=== PATIENT | male | born 1955 | race African-American/Black ===

== ENCOUNTER 2016-03-01 08:22 | Outpatient (CLI) | payer OTHER ==
[2016-02-03 09:39] VITALS: BP 125/83
[2016-03-01 09:08] LABS: eGFR (African) > 60; eGFR (Non-African) 51
== END 2016-03-01 08:23 ==
LOC: LAB 08:22
PROVIDERS: ATTEND Internal Medicine Cardiovascular Disease
DX: I50.9 Heart failure, unspecified (principal)
CPT/HCPCS: 36415; 80048

== ENCOUNTER 2016-03-06 14:55 | Outpatient (CLI) | payer OTHER ==
[2016-02-03 09:39] VITALS: BP 125/83
== END 2016-03-06 14:56 ==
LOC: CARD 14:55
PROVIDERS: ATTEND Internal Medicine Cardiovascular Disease
DX: I50.9 Heart failure, unspecified (principal)
CPT/HCPCS: 99213

== ENCOUNTER 2016-08-13 06:56 | Inpatient (IN) | payer OTHER ==
[2016-08-13] MEDS ORDERED: IPRATROPIUM/ALBUTEROL SULFATE 3 ML AMPUL.NEB NEB ONE ×2 (06:57→07:17)
--- NOTE | 2016-08-13 07:12 | ED Physician Documentation ---
Dyspnea - HISTORIAN Historian: patient (60 year old male walks into to ER with complaints of SOB, on arrival RA Sat 72% with HR 123. Patient denies CP, c/o cough. Reports cough for 1 week, was seen by Dr Willson this week and given "antibiotic" and cough medication. States his SOB was much worse when he got up this morning. ) - HPI Chief Complaint: Wheezing Onset: days ago Duration: continues in ED Associated Symptoms: denies: chills, fever, chest pain, chest discomfort Further Comments: yes (60) - ROS CONST: recent illness EYES/ENT: none GI/: none NEURO/PSYCH: denies: headache MS/SKIN/LYMPH: none - PAST HX Cardiac Disease: CHF PE Risk Factors: hypertension - VITAL SIGNS Vital Signs: Vital Signs Temp Pulse Resp BP Pulse Ox 125/83 02/03/16 08:03 <CORIE RUGGIERO - Last Filed: 08/13/16 07:10> - PAST HX Lung Disease: none Other History: other (CAD (Cath 2015 40% LAD), CHF, HTN, HLD, Sleep apnea, pineal gland cyst, Gout, Diabetes (orals)) - SOCIAL HX Smoking History: non-smoker - FAMILY HX Family History: none - VITAL SIGNS Vital Signs: Vital Signs Temp Pulse Resp BP Pulse Ox 117 H 125/83 93 08/13/16 07:01 02/03/16 08:03 08/13/16 07:01 - REVIEWED ASSESSMENTS Nursing Assessment Reviewed: Yes Vitals Reviewed: Yes <Francisco Javier Mansfield - Last Filed: 08/13/16 08:54> - PAST HX Allergies/Adverse Reactions: Allergies Allergy/AdvReac Type Severity Reaction Status Date / Time PORFIRIO Inhibitors AdvReac Cough Verified 08/13/16 07:12 Progress - Progress Progress: Duoneb HFN Pulmicort NEB Lasix 20 mg IV (PT took his own Lasix 40mg po shortly after arrival) Rocephin 1 gm IV Admit to Dr. Willson. - EKG/XRAY/CT EKG: rhythm (sinus tachycardia; AZ=926; occasional PVC's; LAD.) XRAY: chest (bibasilar hazy infiltrates) <Francisco Javier Mansfield - Last Filed: 08/13/16 08:54> ED Results Lab/Radiology - Orders Orders: ED Orders Category Date Time Status Continuous EKG monitoring Q30M Care 08/13/16 07:01 Ordered Continuous Pulse Oximetry Q30M Care 08/13/16 07:[address] IV Lock 1T Care 08/13/16 07:01 Ordered CHEST 1 VIEW [RAD] Stat Exams 08/13/16 07:01 Ordered BNP [NT-proBNP] Stat Lab 08/13/16 Ordered CBC/PLATELET/DIFF Stat Lab 08/13/16 07:01 Ordered CMP Stat Lab 08/13/16 07:01 Ordered CREATINE KINASE Stat Lab 08/13/16 07:01 Ordered TROPONIN I (cTnI) Stat Lab 08/13/16 07:01 Ordered UA W/MICRO IF INDICATED Stat Lab 08/13/16 07:01 Ordered Ipratropium/Albuterol Sulfate [Duoneb] Med 08/13/16 06:57 Discontinued 3 ml NEB .STK-MED ONE Oxygen Daily Oxygen 08/13/16 07:15 Ordered EKG WITH COMPARISON Stat Ther 08/13/16 07:01 Ordered <CORIE RUGGIERO - Last Filed: 08/13/16 07:10> - Orders Orders: ED Orders Category Date Time Status Continuous EKG monitoring Q30M Care 08/13/16 07:01 Active Continuous Pulse Oximetry Q30M Care 08/13/16 07:[address] IV Lock 1T Care 08/13/16 07:01 Active CHEST 1 VIEW [RAD] Stat Exams 08/13/16 07:01 Taken BNP [NT-proBNP] Stat Lab 08/13/16 07:15 Received CBC/PLATELET/DIFF Stat Lab 08/13/16 07:15 Received CMP Stat Lab 08/13/16 07:15 Received CREATINE KINASE Stat Lab 08/13/16 07:15 Received TROPONIN I (cTnI) Stat Lab 08/13/16 07:15 Received UA W/MICRO IF INDICATED Stat Lab 08/13/16 07:01 Ordered Ipratropium/Albuterol Sulfate [Duoneb] Med 08/13/16 06:57 Discontinued 3 ml NEB .STK-MED ONE Ipratropium/Albuterol Sulfate [Duoneb] Med 08/13/16 07:17 Discontinued 3 ml NEB NOW ONE Oxygen Daily Oxygen 08/13/16 07:15 Ordered EKG WITH COMPARISON Stat Ther 08/13/16 07:01 Ordered <Francisco Javier Mansfield - Last Filed: 08/13/16 08:54> Dyspnea Physical Exam - EXAM General Appearance: moderate distress EENT: pharynx normal Neck: nml inspection Respiratory: wheezes (b/l) CVS: tachycardia Abdomen: non-tender, no organomegaly, no distention Skin: color nml, no rash Extremities: non-tender, normal range of motion, no evidence of injury Neuro/Psych: oriented x3, motor nml, sensation nml <Francisco Javier Mansfield - Last Filed: 08/13/16 08:54> Discharge <CORIE RUGGIERO - Last Filed: 08/13/16 07:10> Decision to Admit: [id number] Decision Time: 08:34 <Francisco Javier Mansfield - Last Filed: 08/13/16 08:54> Clincal Impression: hazy bibasilar infiltrates CHF (congestive heart failure) Qualifiers: Congestive heart failure type: unspecified congestive heart failure type Congestive heart failure chronicity: acute on chronic Qualified Code(s): I50.9 - Heart failure, unspecified Diabetes mellitus Qualifiers: Diabetes mellitus type: type 2 Diabetes mellitus complication status: without complication Diabetes mellitus residential insulin use: without residential use Qualified Code(s): E11.9 - Type 2 diabetes mellitus without complications Condition: Stable Disposition: 09 ADMITTED INPATIENT
[2016-08-13 07:24] LABS: BASOPHILS % 0.8 (0.0-1.5); EOSINOPHILS % 2.6 % (0.0-6.8); MEAN CORPUSCULAR HEMOGLOBIN 29.1 pg (28.0-34.0); MEAN CORPUSCULAR VOLUME 93.3 fl (80.0-100.0); MONOCYTES % 6.4 % (0.0-11.0); NEUTROPHILS # 3.8 # k/uL (1.4-7.7)
[2016-08-13] MEDS ORDERED: BUDESONIDE 0.5MG/2ML AMPUL.NEB NEB ONE (07:34)
[2016-08-13] MEDS ORDERED: CARVEDILOL 12.5 MG TABLET PO ONE ×2 (07:47→15:52)
[2016-08-13] MEDS ORDERED: SPIRONOLACTONE 25 MG TABLET PO ONE (07:47)
[2016-08-13] MEDS ORDERED: CARVEDILOL 25 MG TABLET PO SCH (08:00)
[2016-08-13 08:04] LABS: APPEARANCE,URINE Clear (CLEAR); COLOR,URINE Yellow (YELLOW); OCCULT BLOOD,URINE Negative (NEGATIVE); PH URINE 5.5 (5.0 - 8.0); UROBILINOGEN URINE 0.2 Eu (0.2-1.0)
[2016-08-13] MEDS ORDERED: FUROSEMIDE 40 MG/4 ML VIAL IVP ONE (08:20)
[2016-08-13] MEDS ORDERED: FUROSEMIDE 20 MG/2 ML VIAL IVP ONE (08:31)
[2016-08-13] MEDS ORDERED: cefTRIAXone SODIUM 1 GM VIAL ONE (08:50)
[2016-08-13] MEDS ORDERED: 0.9 % SODIUM CHLORIDE 100 ML IV ONE (08:50)
[2016-08-13] MEDS ORDERED: IPRATROPIUM/ALBUTEROL SULFATE 3 ML AMPUL.NEB NEB PRN (08:51)
[2016-08-13] MEDS: cefTRIAXone SODIUM 1 GM in 0.9 % SODIUM CHLORIDE 50 ML IV SCH (09:00)
[2016-08-13] MEDS ORDERED: cefTRIAXone SODIUM 1 GM in 0.9 % SODIUM CHLORIDE 50 ML IV SCH (09:00)
[2016-08-13] MEDS: CARVEDILOL 25 MG TABLET PO SCH ×2 (09:00→20:42)
[2016-08-13] MEDS ORDERED: SPIRONOLACTONE 25 MG TABLET PO SCH (09:00)
[2016-08-13] MEDS ORDERED: BUDESONIDE 0.5MG/2ML AMPUL.NEB NEB SCH (09:00)
[2016-08-13] MEDS: SPIRONOLACTONE 25 MG TABLET PO SCH (09:01)
[2016-08-13] MEDS: AZITHROMYCIN 500 MG in 0.9 % SODIUM CHLORIDE 250 ML IV SCH (10:29)
[2016-08-13] MEDS: FLUTICASONE PROPIONATE 120 SPRAY/16 GR BOTTLE NS SCH (10:33)
[2016-08-13] MEDS: SALINE FLUSH 10 ML DISP.SYRIN IV SCH ×2 (10:38→21:02)
--- NOTE | 2016-08-13 13:02 | Diagnostic Imaging Report ---
CORIE RUGGIERO (WRAPPING MACHINE OPERATOR) - ER [facility] [address] [facility].[address] [address] Report Submission Date: Aug 13, 2016 7:20:38 AM CDT Patient Study Name: RAYNA TAMEZ Date: Aug 13, 2016 7:06:44 AM CDT Modality Type: CR Gender: M Description: CHEST : 53 Institution: [facility] Physician: CORIE RUGGIERO (WRAPPING MACHINE OPERATOR) - ER Examination: Portable chest History: Dyspnea Comparison exam: 01 February 2016 Findings: Single view of the chest demonstrates bilateral hazy infiltrates involving the lower lung nieves bilaterally. No blunting of the costophrenic margins. Cardiac silhouette not enlarged. Osseous structures appropriate for age. Impression: Bibasilar hazy infiltrates. No effusion. Electronically signed on Aug 13, 2016 7:20:38 AM CDT by: Boo HALLMAN
[2016-08-13] MEDS: ENOXAPARIN SODIUM 40 MG/0.4 ML DISP.SYRIN SQ SCH (13:45)
[2016-08-13 13:55] VITALS: BMI 35.0
--- NOTE | 2016-08-13 16:42 | History and Physical Report ---
History of Present Illnes - History of Present Illness Reason for Visit: Short of breath. History of Present Illness: Patient presented to the ER with SOB - found to have RA SAT of 72% and HR 123. Responded well to duoneb, O2, and IV lasix. Reports once he urinated he began to breathe better. Has had a cough for several months - I saw him in clinic and treated him with a Zpack and flonase. has been ill also. Cough has continued but didn't feel so SOB until this morning. Has a h/o CHF but has been doing very well and decreased admissions since being on Entresto. In the ER he was found to have bilateral patchy infiltrates and an elevated BNP with normal Ddimer. 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: Other (pineal gland cyst) Rheumatologic: Gout Endocrine: Diabetes - Past Surgical History Past Surgical History: None - Past Family History Mother Family History: CAD (cardiomyopathy), , Other (CRI) Father Family History: CAD, Sister 1 Family History: DM, Hypertension - Past Social History Smoke: Quit Occupation: works for [employer] Alcohol: None Drugs: None Lives: With Family - Health Maintenance Health Maintenance: Colonoscopy Influenza Vaccine: Current for this Influenza Season Pneumonia Vaccine: Yes Resuscitation Status: Resusciation Status Resuscitation Status Full Code Review of Systems - Review of Systems Constitutional: negative: Fever, Weakness Eyes: negative: pain ENT: negative: Ear Pain Respiratory: Cough, Shortness of Breath Cardiovascular: negative: Chest Pain Gastrointestinal: Vomiting (x1 yesterday). negative: Nausea, Abdominal Pain Genitourinary: negative: Dysuria Musculoskeletal: negative: Neck Pain Skin: negative: Rash Neurological: Weakness - Medications/Allergies Allergies/Adverse Reactions: Allergies Allergy/AdvReac Type Severity Reaction Status Date / Time PORFIRIO Inhibitors AdvReac Cough Verified 08/13/16 07:12 Current Inpatient Medications: Current Inpatient Medications Albuterol/Ipratropium (Duoneb) 3 ml NEB Q4 PRN PRN Reason: Wheezing Carvedilol (Coreg) 25 mg PO BID BRENNAN Last Admin: 08/13/16 09:00 Dose: Not Given Fluticasone Propionate (Flonase Nasal [place]) 2 spray NS D BRENNAN Last Admin: 08/13/16 10:33 Dose: 2 spr Furosemide (Lasix) 40 mg IVP BID [facility] Stop: 08/17/16 23:59 Glipizide (Glucotrol) 10 mg PO BID [facility] Last Admin: 08/13/16 10:37 Dose: 10 mg Azithromycin 500 mg/ Sodium (Chloride) 250 mls @ 125 mls/hr IV Q24H [facility] Stop: 08/16/16 08:59 Last Admin: 08/13/16 10:29 Dose: 125 mls/hr Ceftriaxone Sodium 1 gm/ (Sodium Chloride) 50 mls @ 100 mls/hr IV QD [facility] Last Admin: 08/13/16 09:00 Dose: 100 mls/hr Metformin HCl (Glucophage) 1,000 mg PO BID [facility] Last Admin: 08/13/16 10:36 Dose: 1,000 mg Sodium Chloride (Normal Saline Flush) 3 ml IV BID [facility] Last Admin: 08/13/16 10:38 Dose: 3 ml Spironolactone (Aldactone) 25 mg PO DAILY [facility] Last Admin: 08/13/16 09:01 Dose: Not Given Exam - Exam Vital Signs: Vital Signs (72 hours) 08/13/16 08/13/16 09:15 09:39 Temperature 98.7 F 97.5 F L Pulse Rate [ 83 72 Pulse ox] Respiratory 29 H 18 Rate Blood Pressure 119/89 128/69 [Right Arm] O2 Sat by Pulse 97 97 Oximetry General: Alert, Oriented to Person, Oriented to Place, Oriented to Time, Cooperative, Mild distress HEENT: Atraumatic, PERRLA, EOMI, Mouth Mucous membr. moist/[place], Nose Mucous membr. moist/[place] Neck: Normal Range of Motion Lungs: Rhonchi Cardiovascular: Regular rate Abdomen: Normal bowel sounds, Soft, No tenderness Integumentary: Normal Extremities: No edema Neurological: Normal gait, Normal speech, Strength Equal Bilat, Normal tone Psych/Mental Status: Mental status NL, Mood NL, Appropriate Affect, Intact Judgment Assessment/Plan - Assessment/Plan (1) Bilateral pneumonia Status: Acute Current Visit: Yes Qualifiers: Pneumonia type: due to unspecified organism Lung location: lower lobe of lung Qualified Code(s): J18.9 - Pneumonia, unspecified organism Plan: Blood cultures Pending. Start duonebs, zithromax and rocephin. O2 to keep sats > 90%. (2) Congestive heart failure Status: Acute Current Visit: Yes Qualifiers: Congestive heart failure type: unspecified congestive heart failure type Congestive heart failure chronicity: acute on chronic Qualified Code(s): I50.9 - Heart failure, unspecified Plan: Start IV lasix diuresis. Watch labs closely. I&O. Daily weight. Consult Dr. Caldwell tomorrow. On Bblocker. Intolerant of ACEI. Unsure why not on ARB. Echo showed EF 20%. (3) Diabetes mellitus Status: Chronic Current Visit: No Qualifiers: Diabetes mellitus type: type 2 Diabetes mellitus complication status: without complication Diabetes mellitus fdc insulin use: without termite exterminator use Qualified Code(s): E11.9 - Type 2 diabetes mellitus without complications (4) Cardiomyopathy Status: Acute Current Visit: No VTE Assessment - RISK FACTOR SCORE VTE RISK FACTOR SCORES: AGE OVER 60 YEARS, ACUTE INFECTION OTHER THEN SEPSIS - RISK VTE MODERATE RISK: SCORE OF 2 (RISK PROXIMAL DVT 2-4%) PROPHYAXIS NEEDED
[2016-08-13] MEDS: FUROSEMIDE 20 MG/2 ML VIAL IVP SCH (21:00)
[2016-08-14] MEDS ORDERED: CARVEDILOL 12.5 MG TABLET PO ONE ×2 (04:57→13:00)
[2016-08-14 06:57] LABS: BASOPHILS % 1.3 (0.0-1.5); EOSINOPHILS % 3.6 % (0.0-6.8); MEAN CORPUSCULAR VOLUME 92.2 fl (80.0-100.0); MONOCYTES % 7.1 % (0.0-11.0)
[2016-08-14 07:18] LABS: eGFR (African) > 60; eGFR (Non-African) 51
--- NOTE | 2016-08-14 09:08 | Inpatient Progress Note ---
Subjective - Required Recertification Statement I anticipate X number of days because-include discharge plan: 1 - Review of Systems Subjective: Patient feeling better. Able to wean off O2. Objective - Exam Vitals and I&O: Vital Signs Temp 98 F 08/14/16 06:00 Pulse 68 08/14/16 06:00 Resp 16 08/14/16 06:00 BP 122/76 08/14/16 06:00 Pulse Ox 99 08/14/16 06:00 Intake & Output 08/13/16 08/13/16 08/14/16 11:59 23:59 11:59 Intake Total 840 840 Output Total 4750 Balance 840 -3910 Weight 98.43 kg 98.883 kg 96.162 kg Intake: Oral 840 840 Output: Urine 4750 Other: Voiding Method Urinal Urinal General: Alert, Oriented to Person, Oriented to Place, Oriented to Time, Cooperative, No acute distress Lungs: Rhonchi (Improved) Cardiovascular: Regular rate Extremities: No edema - Results Results: Laboratory Results WBC 4.60 K/ul (4.00-12.00) 08/14/16 06:45 RBC 4.97 M/ul (3.90-5.20) 08/14/16 06:45 Hgb 14.9 g/dL (12.0-18.0) 08/14/16 06:45 Hct 45.8 % (37.0-53.0) 08/14/16 06:45 MCV 92.2 fl (80.0-100.0) 08/14/16 06:45 MCH 30.0 pg (28.0-34.0) 08/14/16 06:45 MCHC 32.6 g/dL (30.0-36.0) 08/14/16 06:45 RDW 13.4 % (11.3-14.3) 08/14/16 06:45 Plt Count 224 K/mm3 (130-400) 08/14/16 06:45 Neut % (Auto) 64.4 % (39.0-79.0) 08/14/16 06:45 Lymph % (Auto) 22.0 % (16.0-50.0) 08/14/16 06:45 Price % (Auto) 7.1 % (0.0-11.0) 08/14/16 06:45 Eos % (Auto) 3.6 % (0.0-6.8) 08/14/16 06:45 Baso % (Auto) 1.3 (0.0-1.5) 08/14/16 06:45 Neut # (Auto) 3.0 # k/uL (1.4-7.7) 08/14/16 06:45 Lymph # (Auto) 1.0 # k/uL (0.6-4.0) 08/14/16 06:45 Price # (Auto) 0.3 # k/uL (0.0-0.9) 08/14/16 06:45 Eos # (Auto) 0.2 # k/uL (0.0-0.6) 08/14/16 06:45 Baso # (Auto) 0.1 # k/uL (0.0-0.5) 08/14/16 06:45 Reactive Lymphs % 1.6 % (0.0-5.0) 08/14/16 06:45 Reactive Lymphs # 0.1 # k/uL (0.0-0.8) 08/14/16 06:45 D-Dimer 392 ng/mL (6.0-682) 08/13/16 07:30 Sodium 138 mmol/L (136-145) 08/14/16 06:45 Potassium 4.0 mmol/L (3.5-5.0) 08/14/16 06:45 Chloride 99 mmol/L (98-110) 08/14/16 06:45 Carbon Dioxide 33 mmol/L (20-32) H 08/14/16 06:45 BUN 15 mg/dL (10-26) 08/14/16 06:45 Creatinine 1.5 mg/dL (0.4-1.5) 08/14/16 06:45 Estimated Creat Clear 72 08/14/16 06:45 Est GFR ( Amer) > 60 (60-) 08/14/16 06:45 Est GFR (Non-Af Amer) 51 (60-) L 08/14/16 06:45 Glucose 140 mg/dL (70-99) H 08/14/16 06:45 Calcium 9.3 mg/dL (8.5-10.5) 08/14/16 06:45 Total Bilirubin 0.9 mg/dL (0.2-1.2) 08/14/16 06:45 AST 18 U/L (0-41) 08/14/16 06:45 ALT 17 U/L (0-45) 08/14/16 06:45 Alkaline Phosphatase 73 U/L (46-116) 08/14/16 06:45 Creatine Kinase 192 U/L (0-225) 08/13/16 07:15 Troponin I 0.03 ng/mL (0.03-0.06) 08/13/16 07:15 NT-Pro-B Natriuret Pep 2227.9 pg/mL (15.0-125.0) H 08/13/16 07:15 Total Protein 6.4 g/dL (6.0-8.5) 08/14/16 06:45 Albumin 3.9 g/dL (3.0-5.5) 08/14/16 06:45 Urine Color Yellow (YELLOW) 08/13/16 08:00 Urine Appearance Clear (CLEAR) 08/13/16 08:00 Urine pH 5.5 (5.0 - 8.0) 08/13/16 08:00 Ur Specific [place] 1.010 (1.010-1.030) 08/13/16 08:00 Urine Protein Negative mg/dL (NEGATIVE) 08/13/16 08:00 Urine Ketones Negative mg/dL (NEGATIVE) 08/13/16 08:00 Urine Occult Blood Negative (NEGATIVE) 08/13/16 08:00 Urine Nitrite Negative (NEGATIVE) 08/13/16 08:00 Urine Bilirubin Negative (NEGATIVE) 08/13/16 08:00 Urine Urobilinogen 0.2 Eu (0.2-1.0) 08/13/16 08:00 Ur Leukocyte Esterase Negative (NEGATIVE) 08/13/16 08:00 Urine Glucose Negative mg/dL (NEGATIVE) 08/13/16 08:00 Assessment/Plan - Assessment/Plan (1) Bilateral pneumonia Status: Acute Current Visit: Yes Qualifiers: Pneumonia type: due to unspecified organism Lung location: lower lobe of lung Qualified Code(s): J18.9 - Pneumonia, unspecified organism Plan: 2 view CXR shows improvement today. Plan to continue IV antibiotics until blood cultures back tomorrow. Off O2. Not needed HFN. (2) Congestive heart failure Status: Acute Current Visit: Yes Qualifiers: Congestive heart failure type: unspecified congestive heart failure type Congestive heart failure chronicity: acute on chronic Qualified Code(s): I50.9 - Heart failure, unspecified Plan: Good diuresis on lasix IV. Continue another [address] Caldwell to see patient today. (3) Diabetes mellitus Status: Chronic Current Visit: No Qualifiers: Diabetes mellitus type: type 2 Diabetes mellitus complication status: without complication Diabetes mellitus medical terminologist insulin use: without mcc use Qualified Code(s): E11.9 - Type 2 diabetes mellitus without complications (4) Cardiomyopathy Status: Acute Current Visit: No
[2016-08-14] MEDS: CARVEDILOL 25 MG TABLET PO SCH ×2 (09:14→20:42)
[2016-08-14] MEDS: FLUTICASONE PROPIONATE 120 SPRAY/16 GR BOTTLE NS SCH (09:14)
[2016-08-14] MEDS: SPIRONOLACTONE 25 MG TABLET PO SCH (09:14)
[2016-08-14] MEDS: SALINE FLUSH 10 ML DISP.SYRIN IV SCH ×2 (09:14→20:39)
[2016-08-14] MEDS: cefTRIAXone SODIUM 1 GM in 0.9 % SODIUM CHLORIDE 50 ML IV SCH (09:17)
[2016-08-14] MEDS: FUROSEMIDE 20 MG/2 ML VIAL IVP SCH ×2 (10:11→20:24)
[2016-08-14] MEDS: AZITHROMYCIN 500 MG in 0.9 % SODIUM CHLORIDE 250 ML IV SCH (10:29)
[2016-08-14] MEDS: ENOXAPARIN SODIUM 40 MG/0.4 ML DISP.SYRIN SQ SCH (12:16)
--- NOTE | 2016-08-14 13:49 | Diagnostic Imaging Report ---
CHRIS MELGAR [facility] [address] [facility] [address] [address] Report Submission Date: Aug 14, 2016 6:50:02 AM CDT Patient Study Name: RAYNA TAMEZ Date: Aug 14, 2016 6:27:10 AM CDT Modality Type: CR Gender: M Description: CHEST : 53 Institution: [facility] Physician: CHRIS MELGAR HISTORY: 60-year-old male with shortness of breath. COMPARISON: Chest x-ray dated 08/13/2016 TECHNIQUE: 2 views of the chest were performed. FINDINGS: There has been interval improvement in the aeration of the bilateral lower lobes. No pneumothorax or new infiltrates. The heart is enlarged. There is thoracic degenerative disc disease. IMPRESSION: 1. Improvement in bilateral lower lobe infiltrate since the previous day. 2. Cardiomegaly. 3. Thoracic spondylosis. Electronically signed on Aug 14, 2016 6:50:02 AM CDT by: Jim HALLMAN
[2016-08-14] MEDS ORDERED: FUROSEMIDE 40 MG/4 ML VIAL ONE (20:14)
[2016-08-15] MEDS ORDERED: FUROSEMIDE 40 MG/4 ML VIAL ONE (04:02)
[2016-08-15 06:47] LABS: eGFR (African) > 60; eGFR (Non-African) 55
[2016-08-15] MEDS ORDERED: AZITHROMYCIN 250 MG TABLET PO ONE (08:03)
--- NOTE | 2016-08-15 08:08 | Discharge Summary ---
Discharge Summary - Discharge Sumary History of Present Illness: Patient presented to the ER with SOB - found to have RA SAT of 72% and HR 123. Responded well to duoneb, O2, and IV lasix. Reports once he urinated he began to breathe better. Has had a cough for several months - I saw him in clinic and treated him with a Zpack and flonase. has been ill also. Cough has continued but didn't feel so SOB until this morning. Has a h/o CHF but has been doing very well and decreased admissions since being on Entresto. In the ER he was found to have bilateral patchy infiltrates and an elevated BNP with normal Ddimer. Condition at Discharge: Stable Home Medications: Ambulatory Orders Medication Instructions Recorded Metolazone 2.5 mg PO DAILY PRN 08/14/16 Cefdinir [Omnicef] 300 mg PO BID #10 capsule 08/15/16 Empagliflozin [Jardiance] 10 mg PO DAILY #30 tablet 08/15/16 Sacubitril/Valsartan [Entresto 49 1 each PO BID #60 tablet 08/15/16 mg-51 mg Tablet] Consultations this Visit: Cardiology Procedures this Visit: None Allergies/Adverse Reactions: Allergies Allergy/AdvReac Type Severity Reaction Status Date / Time PORFIRIO Inhibitors AdvReac Cough Verified 08/13/16 07:12 Patient Problems: Current Active Problems Problem Status Onset Bilateral pneumonia Acute Congestive heart failure Acute Discharge Summary: Patient was admitted with dyspnea and hypoxia from pneumonia and CHF. Responded well to HFN, O2 and IV lasix in the ER. IV lasix diuresis continued while hospitalized. Dr. Caldwell consulted. Recommends to increase Entresto. A1C was 10.1. Will add Jardiance to his d/c home DM regimen. For his pneumonia - zithromax was given for 3 days. IV rocephin given for 3 days. D/C on 5 days of cefdinir. O2 weaned to RA. Discussed diet and medication compliance. Hospital Course: Discharge Dx: Pneumonia. CHF. DM. Cardiomyopathy. Disposition: HOme
[2016-08-15] MEDS: SPIRONOLACTONE 25 MG TABLET PO SCH (08:22)
[2016-08-15] MEDS: CARVEDILOL 25 MG TABLET PO SCH (08:22)
[2016-08-15] MEDS: FLUTICASONE PROPIONATE 120 SPRAY/16 GR BOTTLE NS SCH (08:55)
[2016-08-15] MEDS: FUROSEMIDE 20 MG/2 ML VIAL IVP SCH (08:58)
[2016-08-15] MEDS: cefTRIAXone SODIUM 1 GM in 0.9 % SODIUM CHLORIDE 50 ML IV SCH (09:20)
[2016-08-15] MEDS: SALINE FLUSH 10 ML DISP.SYRIN IV SCH (09:27)
[2016-08-15] MEDS: ENOXAPARIN SODIUM 40 MG/0.4 ML DISP.SYRIN SQ SCH (12:05)
[2016-08-15 13:32] VITALS: BP 117/75
== END 2016-08-15 12:00 | disposition home or self-care (01) | DRG 194 ==
LOC: ED 06:56 → SOUTH 08:51
PROVIDERS: ADMIT Family Medicine; ATTEND Family Medicine
DX: J18.9 Pneumonia, unspecified organism (principal); I42.9 Cardiomyopathy, unspecified; I50.9 Heart failure, unspecified; E11.9 Type 2 diabetes mellitus without complications
CPT/HCPCS: 36415; 71010; 71020; 80048; 80053; 81002; 82550; 83036; 83880; 84484; 85025; 85379; 87040; 93005; J0456; J0696; J1650; J1940; J7050; J7626; S1016

== ENCOUNTER 2016-11-21 07:29 | Emergency (ER) | payer OTHER ==
[2016-11-21 08:05] LABS: BASOPHILS % 1.3 (0.0-1.5); EOSINOPHILS % 1.6 % (0.0-6.8); MEAN CORPUSCULAR HEMOGLOBIN 29.5 pg (28.0-34.0); MEAN CORPUSCULAR VOLUME 89.3 fl (80.0-100.0); MONOCYTES % 8.2 % (0.0-11.0); NEUTROPHILS # 2.8 # k/uL (1.4-7.7)
[2016-11-21 08:08] LABS: eGFR (African) > 60; eGFR (Non-African) 50
[2016-11-21] MEDS: ASPIRIN 325 MG TABLET PO ONE (08:09)
[2016-11-21] MEDS: ASPIRIN 81 MG CHEW TAB PO ONE (08:10)
--- NOTE | 2016-11-21 08:22 | Diagnostic Imaging Report ---
CASSANDRA LEON [facility] [address] [facility].[address] [address] Report Submission Date: Nov 21, 2016 8:11:24 AM CDT Patient Study Name: RAYNA TAMEZ Date: Nov 21, 2016 7:51:16 AM CDT Modality Type: CR Gender: M Description: CHEST : 53 Institution: [facility] Physician: CASSANDRA LEON Chest PA and lateral views Clinical history: Dyspnea Prior films of . There is cardiomegaly with pulmonary venous congestion. No acute infiltrates or pleural effusion. Thoracic spondylosis. Impression: Cardiomegaly with pulmonary venous congestion highly suspicious for an early congestive heart failure Electronically signed on Nov 21, 2016 8:11:24 AM CDT by: Epifanio HALLMAN
--- NOTE | 2016-11-21 08:31 | ED Physician Documentation ---
Dyspnea - HISTORIAN Historian: patient, spouse - HPI Stated Complaint: short of breath Chief Complaint: Dyspnea Additional Information: dyspnea poor sleep hx chf renal insuffiency diabetes no dep edema Onset: days ago (5-6 progressive) Duration: continues in ED Initiating Event: other (pt just has intermittent exab chf). denies: out of meds, aspiration, choking, exposure to smoke Severity: mild, moderate Exacerbated By: exertion, laying flat, coughing Further Comments: yes (he has had several prev similar attacks) - ROS CONST: denies: recent illness, weakness EYES/ENT: none GI/: denies: problems urinating, vomiting, nausea MS/SKIN/LYMPH: none - PAST HX Lung Disease: none Cardiac Disease: CHF PE Risk Factors: hypertension. denies: leg swelling Surgeries/Procedures: other (card cath reportedly artys clean) Other History: diabetes Type 2 Allergies/Adverse Reactions: Allergies Allergy/AdvReac Type Severity Reaction Status Date / Time PORFIRIO Inhibitors AdvReac Cough Verified 11/21/16 07:40 Home Medications: Ambulatory Orders Medication Instructions Recorded Metolazone 2.5 mg PO DAILY PRN 08/14/16 Empagliflozin [Jardiance] 10 mg PO DAILY #30 tablet 08/15/16 Sacubitril/Valsartan [Entresto 49 1 each PO BID #60 tablet 08/15/16 mg-51 mg Tablet] - SOCIAL HX Smoking History: non-smoker Alcohol Use: occasionally Drug Use: none - FAMILY HX Family History: no significant history - VITAL SIGNS Vital Signs: Vital Signs Temp Pulse Resp BP Pulse Ox 98.6 F 95 H 28 H 146/109 92 11/21/16 07:29 11/21/16 07:29 11/21/16 07:29 11/21/16 07:29 11/21/16 07:29 - REVIEWED ASSESSMENTS Nursing Assessment Reviewed: Yes Vitals Reviewed: Yes ED Results Lab/Radiology - Lab Results Lab Results: Lab Results 11/21/16 11/21/16 11/21/16 07:50 07:50 07:50 WBC 4.54 K/ul K/ul (4.00-12.00) RBC 5.58 M/ul H M/ul (3.90-5.20) Hgb 16.5 g/dL g/dL (12.0-18.0) Hct 49.8 % % (37.0-53.0) MCV 89.3 fl fl (80.0-100.0) MCH 29.5 pg pg (28.0-34.0) MCHC 33.1 g/dL g/dL (30.0-36.0) RDW 13.8 % % (11.3-14.3) Plt Count 252 K/mm3 K/mm3 (130-400) Neut % (Auto) 61.2 % % (39.0-79.0) Lymph % (Auto) 25.3 % % (16.0-50.0) [place] % (Auto) 8.2 % % (0.0-11.0) Eos % (Auto) 1.6 % % (0.0-6.8) Baso % (Auto) 1.3 (0.0-1.5) Neut # (Auto) 2.8 # k/uL # k/uL (1.4-7.7) Lymph # (Auto) 1.2 # k/uL # k/uL (0.6-4.0) [place] # (Auto) 0.4 # k/uL # k/uL (0.0-0.9) Eos # (Auto) 0.1 # k/uL # k/uL (0.0-0.6) Baso # (Auto) 0.1 # k/uL # k/uL (0.0-0.5) Reactive Lymphs % 2.3 % % (0.0-5.0) Reactive Lymphs # 0.1 # k/uL # k/uL (0.0-0.8) Sodium 139 mmol/L mmol/L (137-145) Potassium 4.3 mmol/L mmol/L (3.5-5.1) Chloride 100 mmol/L mmol/L (98-107) Carbon Dioxide 30 mmol/L mmol/L (22-30) BUN 18 mg/dL mg/dL (9-20) Creatinine 1.50 mg/dL H mg/dL (0.66-1.25) Estimated Creat Clear 70 Est GFR ( Amer) > 60 (60 - ) Est GFR (Non-Af Amer) 50 L (60 - ) Glucose 159 mg/dL H mg/dL (74-106) Calcium 9.0 mg/dL mg/dL (8.4-10.2) Total Bilirubin 0.6 mg/dL mg/dL (0.2-1.3) AST 28 U/L U/L (15-46) ALT 30 U/L U/L (13-69) Alkaline Phosphatase 79 U/L U/L (38-126) Creatine Kinase 93 U/L U/L (55-170) Troponin I 0.03 ng/mL ng/mL (0.03-0.06) Total Protein 7.2 g/dL g/dL (6.3-8.2) Albumin 4.0 g/dL g/dL (3.5-5.0) - Radiology Radiology Impressions: cxr--exab chf-cardiomegally - Orders Orders: ED Orders Category Date Time Status Continuous Pulse Oximetry Q30M Care 11/21/16 07:[address] IV Lock 1T Care 11/21/16 07:39 Active CHEST P.A.&LAT 2 VIEWS [RAD] Stat Exams 11/21/16 Completed CBC/PLATELET/DIFF Routine Lab 11/21/16 07:50 Completed CMP Routine Lab 11/21/16 07:50 Completed CREATINE KINASE Routine Lab 11/21/16 07:50 Completed TROPONIN I (cTnI) Stat Lab 11/21/16 07:50 Completed Aspirin Med 11/21/16 07:38 Discontinued 324 mg PO NOW ONE Aspirin Med 11/21/16 07:37 Discontinued 325 mg PO NOW ONE Oxygen Daily Oxygen 11/21/16 08:00 Ordered Oxygen Daily Oxygen 11/21/16 08:00 Ordered EKG WITH COMPARISON Stat Ther 11/21/16 Ordered Dyspnea Physical Exam - EXAM General Appearance: mild distress, moderate distress EENT: eye inspection normal Neck: nml inspection Respiratory: wheezes, rales, rhonchi. No: breath sounds nml, stridor CVS: reg. rate & rhythm Abdomen: non-tender, no distention Skin: color nml, no rash. No: cyanosis, diaphoresis, pallor Extremities: non-tender, normal range of motion, no edema Neuro/Psych: oriented x3, motor nml, sensation nml, mood/affect nml Discharge Clincal Impression: exab CHF improved, lo gr renal failure, [facility] diabetes mellitus Referrals: Casie Willson MD [Primary Care Provider] - 2 Days Comments: disc cond w/pt DR WILLSON- will send home control diabetes take zaroxlyn daily till sees DR WILLSON next week become expert in diabetes nutrition Condition: Good Disposition: 01 HOME, SELF-CARE Decision to Admit: NO Decision Time: 10:29
[2016-11-21] MEDS: ENALAPRILAT DIHYDRATE 1.25 MG/1 ML IVP ONE (08:53)
[2016-11-21] MEDS: FUROSEMIDE 20 MG/2 ML VIAL IVP ONE ×2 (09:15→10:28)
[2016-11-21] MEDS: NITROGLYCERIN 0.4 MG TAB.SUBL SL ONE (10:27)
[2016-11-21 10:44] VITALS: BP 108/74
== END 2016-11-21 10:42 | disposition home or self-care (01) ==
LOC: ED 07:29
DX: I50.9 Heart failure, unspecified (principal); N19 Unspecified kidney failure; E11.649 Type 2 diabetes mellitus with hypoglycemia without coma
CPT/HCPCS: 71020; 80053; 82550; 84484; 85025; A9270; J1940; J3490; 99283; S1016

== ENCOUNTER 2017-04-19 20:35 | Inpatient (IN) | payer OTHER ==
[2017-04-19] MEDS ORDERED: FUROSEMIDE 40 MG/4 ML VIAL IVP ONE (21:09)
[2017-04-19 21:32] LABS: BASOPHILS % 0.6 (0.0-1.5); EOSINOPHILS % 2.2 % (0.0-6.8); MEAN CORPUSCULAR HEMOGLOBIN 29.9 pg (28.0-34.0); MONOCYTES % 5.1 % (0.0-11.0); NEUTROPHILS # 3.5 # k/uL (1.4-7.7)
--- NOTE | 2017-04-19 21:47 | ED Physician Documentation ---
Dyspnea - HISTORIAN Historian: patient - HPI Stated Complaint: soa Chief Complaint: Dyspnea Additional Information: Known heart patient who has been dyspneic for last 3 days. Onset: days ago (3) Duration: continues in ED Initiating Event: other (no known trigger). denies: upper respiratory illness, out of meds, exposure to smoke, exposure to mold Severity: moderate Exacerbated By: exertion Associated Symptoms: denies: chills, fever, sweating, chest pain, productive cough Further Comments: no - ROS CONST: no problems EYES/ENT: denies: problems with vision, sore throat, nasal drainage, nasal congestion GI/: none NEURO/PSYCH: denies: headache MS/SKIN/LYMPH: none - PAST HX Lung Disease: none Cardiac Disease: CHF, CAD PE Risk Factors: hypertension Surgeries/Procedures: other (ortho) Other History: diabetes Type 2 Immunizations: referred to PCP Allergies/Adverse Reactions: Allergies Allergy/AdvReac Type Severity Reaction Status Date / Time PORFIRIO Inhibitors AdvReac Cough Verified 04/19/17 23:57 Home Medications: Ambulatory Orders Medication Instructions Recorded Empagliflozin [Jardiance] 10 mg PO DAILY #30 tablet 08/15/16 Sacubitril/Valsartan [Entresto 49 1 each PO BID #60 tablet 08/15/16 mg-51 mg Tablet] - SOCIAL HX Smoking History: non-smoker Alcohol Use: occasionally Drug Use: none - FAMILY HX Family History: no significant history - VITAL SIGNS Vital Signs: Vital Signs Temp Pulse Resp BP Pulse Ox 98.1 F 101 H 14 146/99 88 L 04/19/17 20:36 04/19/17 20:36 04/19/17 20:36 04/19/17 20:36 04/19/17 20:36 - REVIEWED ASSESSMENTS Nursing Assessment Reviewed: Yes Vitals Reviewed: Yes Progress - Results/Orders Results/Orders: cbc, cmp, trop, bnp, pt/ptt/inr, ua, cxr, ekg ordered - Progress Progress: pt. given 60 mg Lasix ivp in ER Critical Care Note - Critical Care Note Total Time (mins): 0 ED Results Lab/Radiology - Lab Results Lab Results: Lab Results 04/19/17 21:27 WBC 5.10 K/ul K/ul (4.00-12.00) RBC 4.82 M/ul M/ul (3.90-5.20) Hgb 14.4 g/dL g/dL (12.0-18.0) Hct 43.4 % % (37.0-53.0) MCV 90.0 fl fl (80.0-100.0) MCH 29.9 pg pg (28.0-34.0) MCHC 33.2 g/dL g/dL (30.0-36.0) RDW 13.7 % % (11.3-14.3) Plt Count 287 K/mm3 K/mm3 (130-400) Neut % (Auto) 68.9 % % (39.0-79.0) Lymph % (Auto) 20.9 % % (16.0-50.0) Tillman % (Auto) 5.1 % % (0.0-11.0) Eos % (Auto) 2.2 % % (0.0-6.8) Baso % (Auto) 0.6 (0.0-1.5) Neut # (Auto) 3.5 # k/uL # k/uL (1.4-7.7) Lymph # (Auto) 1.1 # k/uL # k/uL (0.6-4.0) Tillman # (Auto) 0.3 # k/uL # k/uL (0.0-0.9) Eos # (Auto) 0.1 # k/uL # k/uL (0.0-0.6) Baso # (Auto) 0.0 # k/uL # k/uL (0.0-0.5) Reactive Lymphs % 2.4 % % (0.0-5.0) Reactive Lymphs # 0.1 # k/uL # k/uL (0.0-0.8) - Radiology Radiology Impressions: cxr shows mild bilateral pulmonary infiltrates consistent with chf - Orders Orders: ED Orders Category Date Time Status Place IV Lock 1T Care 04/19/17 21:09 Active CHEST 2VIEW [RAD] Routine Exams 04/19/17 Ordered CBC/PLATELET/DIFF Routine Lab 04/19/17 21:27 Completed CMP Routine Lab 04/19/17 21:27 Received NT-proBNP Routine Lab 04/19/17 21:27 Received PT-INR Routine Lab 04/19/17 21:27 Received PTT Routine Lab 04/19/17 21:27 Received TROPONIN I (cTnI) Routine Lab 04/19/17 21:27 Received URINALYSIS Routine Lab 04/19/17 21:09 Ordered Furosemide [Lasix] Med 04/19/17 21:09 Discontinued 60 mg IVP NOW ONE Oxygen Daily Oxygen 04/19/17 21:15 Ordered EKG WITH COMPARISON Routine Ther 04/19/17 Ordered Dyspnea Physical Exam - EXAM General Appearance: alert, mild distress EENT: eye inspection normal, ENT inspection normal, pharynx normal, no signs of dehydration, QUINTON, no nystagmus, TM's nml. No: pale conjunctivae Neck: nml inspection (positve JVD) Respiratory: speaks full sentences, rales. No: respiratory distress, retractions, splinting, accessory muscle use, wheezes, stridor CVS: reg. rate & rhythm, gallop (S3/S4) Abdomen: non-tender, no organomegaly, no distention, no ascites Skin: color nml, no rash Extremities: non-tender, normal range of motion, no evidence of injury, no edema Neuro/Psych: oriented x3, CN's nml as tested, motor nml, sensation nml, mood/ affect nml Discharge Clincal Impression: CHF (congestive heart failure) Qualifiers: Heart failure type: unspecified Heart failure chronicity: acute on chronic Qualified Code(s): I50.9 - Heart failure, unspecified Condition: Stable Disposition: ER [facility] Decision to Admit: [id number] Date of Decison to Admit: 04/19/17 Decision Time: 23:30
--- NOTE | 2017-04-19 23:37 | Diagnostic Imaging Report ---
JORDON LEE [facility] [address] [facility].[address] [address] Report Submission Date: Apr 19, 2017 10:40:42 PM EXPERIMENTAL BOX TESTER Patient Study Name: RAYNA TAMEZ Date: Apr 19, 2017 10:04:15 PM EXPERIMENTAL BOX TESTER Modality Type: DX Gender: M Description: CHEST : 53 Institution: [facility] Physician: JORDON LEE PA and lateral chest Clinical history: DRY COUGH X 3 DAYS Findings: Examination of the chest in PA and lateral views demonstrates mild pulmonary vascular congestion with perivascular and peribronchial cuffing. Cardiac silhouette is enlarged and the aorta is atherosclerotic. No pleural effusion. Bony thorax is intact. Impression: 1. Cardiomegaly and aortic atherosclerosis. 2. Mild pulmonary vascular congestion. Electronically signed on Apr 19, 2017 10:40:42 PM EXPERIMENTAL BOX TESTER by: Earle HALLMAN
[2017-04-19] MEDS ORDERED: ALBUTEROL SULFATE 2.5 MG/3 ML AMPUL.NEB NEB PRN (23:47)
[2017-04-19] MEDS ORDERED: FLUTICASONE PROPIONATE 120 SPRAY/16 GR BOTTLE NS SCH (23:47)
[2017-04-20 00:38] VITALS: BMI 31.5
[2017-04-20] MEDS ORDERED: CARVEDILOL 12.5 MG TABLET PO ONE (02:59)
[2017-04-20] MEDS ORDERED: POTASSIUM CHLORIDE 10 MEQ TABLET.ER PO ONE (02:59)
[2017-04-20] MEDS ORDERED: FUROSEMIDE 20 MG/2 ML VIAL ONE (03:00)
[2017-04-20 06:50] LABS: APPEARANCE,URINE CLEAR (CLEAR); COLOR,URINE YELLOW (YELLOW); OCCULT BLOOD,URINE NEGATIVE (NEGATIVE); UROBILINOGEN URINE 0.2 Eu (0.2-1.0)
[2017-04-20 07:10] LABS: eGFR (African) > 60; eGFR (Non-African) 59
--- NOTE | 2017-04-20 07:30 | Diagnostic Imaging Report ---
[facility] [address] [facility] [address] [address] Report Submission Date: Apr 20, 2017 7:25:04 AM HUMAN SERVICES ASSISTANT Patient Study Name: RAYNA TAMEZ Date: Apr 20, 2017 7:06:30 AM HUMAN SERVICES ASSISTANT Modality Type: DX Gender: M Description: CHEST : 53 Institution: [facility] Physician: LINDEN BRADY/MED SURG HISTORY: 61-year-old male with cough, CHF. COMPARISON: Chest x-ray dated 04/19/2017. TECHNIQUE: 2 views of the chest were performed. FINDINGS: No pneumothorax, consolidative infiltrates, pleural effusions, or pulmonary edema. The heart is enlarged. There is thoracic degenerative disc disease with multiple bridging syndesmophytes. IMPRESSION: 1. Cardiomegaly without evidence of acute intrathoracic process. 2. Thoracic spondylosis with some degree of ankylosis. Electronically signed on Apr 20, 2017 7:25:04 AM HUMAN SERVICES ASSISTANT by: Jmi HALLMAN
[2017-04-20] MEDS ORDERED: GLIPIZIDE 10 MG PO SCH (09:00)
[2017-04-20] MEDS ORDERED: VALSARTAN PO SCH (09:00)
[2017-04-20] MEDS ORDERED: EMPAGLIFLOZIN 10 MG PO SCH (09:00)
[2017-04-20] MEDS ORDERED: FUROSEMIDE 20 MG/2 ML VIAL IVP SCH (09:00)
[2017-04-20] MEDS ORDERED: CARVEDILOL 25 MG TABLET PO SCH (09:00)
[2017-04-20] MEDS ORDERED: POTASSIUM CHLORIDE 10 MEQ TABLET.ER PO SCH (09:00)
[2017-04-20] MEDS ORDERED: SACUBITRIL PO SCH (09:00)
--- NOTE | 2017-04-20 09:26 | History and Physical Report ---
History of Present Illnes - History of Present Illness Reason for Visit: dyspnea History of Present Illness: 61yo male who develped some SOB last noc. Has a history of CHF. Patient states he has been having some increase swelling in the legs. Patient had some mild public symptoms. Patient denies any chest pain chest pressure TIA or CVA symptoms. Patient was seen in the ED was felt to be having some exacerbation of congestive heart failure was subsequently admitted to the hospital for further care and evaluation.Patient states that is hypertension has been stable. Patient has not missed any of his medications. 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 negative: Fever, Chills Eyes: negative: pain, vision change ENT: negative: Ear Pain, Ear Discharge, Nose Pain, Nose Discharge, Nose Congestion, Mouth Swelling, Throat Swelling Respiratory: Cough, Dry, Shortness of Breath, SOB with Excertion. negative: Hemoptysis, Pleuritic Pain, Sputum, Wheezing Cardiovascular: negative: Chest Pain, Palpitations, Orthopnea, Edema Gastrointestinal: negative: Nausea, Vomiting, Abdominal Pain, Diarrhea, Constipation, Melena Genitourinary: negative: Dysuria, Frequency, Incontinence Musculoskeletal: negative: Neck Pain Skin: negative: Rash Neurological: Weakness. negative: Numbness, Incoordination, Change in Speech - Medications/Allergies Allergies/Adverse Reactions: Allergies Allergy/AdvReac Type Severity Reaction Status Date / Time PORFIRIO Inhibitors AdvReac Cough Verified 04/19/17 23:57 Current Inpatient Medications: Current Inpatient Medications Albuterol Sulfate (Ventolin) 2.5 mg NEB Q4 PRN PRN Reason: Wheezing Carvedilol (Coreg) 25 mg PO BID BRENNAN Last Admin: 04/20/17 08:23 Dose: 25 mg Fluticasone Propionate (Flonase Nasal Stewart) spray NS 2 sp each nostril qd [facility] Furosemide (Lasix) 20 mg IVP Q12 [facility] Last Admin: 04/20/17 08:25 Dose: 20 mg Metformin HCl (Glucophage) 1,[place] [id number] [facility] Last Admin: 04/20/17 08:22 Dose: 1,000 mg Miscellaneous (Empagliflozin [Jardiance]) 10 mg PO DAILY [facility] Last Admin: 04/20/17 08:29 Dose: Not Given Miscellaneous (Glipizide [Glucotrol]) 10 mg PO BID [facility] Last Admin: 04/20/17 08:23 Dose: 10 mg Miscellaneous (Sacubitril/Valsartan [Entresto 49 Mg-51 Mg Tablet]) 1 each PO BID [facility] Last Admin: 04/20/17 08:29 Dose: Not Given Potassium Chloride (Klor-Con 10) 20 meq PO BID [facility] Last Admin: 04/20/17 08:23 Dose: 20 meq Exam - Exam Vital Signs: Vital Signs (72 hours) 04/19/17 04/19/17 04/20/17 23:46 23:47 00:00 Temperature 96.2 F L Pulse Rate 91 H 74 Pulse Rate [ 91 H 88 Pulse ox] Respiratory 18 16 Rate Blood Pressure 139/94 [Left Arm] Blood Pressure 143/92 [Right Arm] O2 Sat by Pulse 92 92 Oximetry 04/20/17 04/20/17 04/20/17 02:00 03:46 04:00 Temperature 97.6 F Pulse Rate 79 Pulse Rate [ Pulse ox] Respiratory 16 16 Rate Blood Pressure [Left Arm] Blood Pressure 125/73 [Right Arm] O2 Sat by Pulse 97 Oximetry 04/20/17 04/20/17 04/20/17 06:00 06:36 06:39 Temperature 97.8 F Pulse Rate Pulse Rate [ 83 83 Pulse ox] Respiratory 16 16 Rate Blood Pressure 125/79 [Left Arm] Blood Pressure [Right Arm] O2 Sat by Pulse 97 95 Oximetry 04/20/17 07:58 Temperature Pulse Rate 86 Pulse Rate [ Pulse ox] Respiratory Rate Blood Pressure [Left Arm] Blood Pressure [Right Arm] O2 Sat by Pulse Oximetry General: Alert, Oriented to Person, Oriented to Place, Oriented to Time, Cooperative HEENT: Atraumatic, PERRLA, EOMI, Mouth Mucous membr. moist/Munden, Nose Mucous membr. moist/Munden Neck: Normal Range of Motion Lungs: Normal air movement, Speaks full Sentences, Rales (in bases bialterally) . No: Wheezes, Rhonchi (thank you) Cardiovascular: Regular rate, Normal S1, Normal S2, No murmurs Abdomen: Normal bowel sounds, Soft, No tenderness, No hepatospenomegaly, No masses Integumentary: Normal, Munden, Warm, Dry Extremities: No clubbing, No cyanosis, Normal pulses, No tenderness/swelling, Other (2plus bialteral) Neurological: Normal gait, Normal speech, Strength Equal Bilat, Normal tone, Sensation intact, Cranial nerves 3-12 NL, Reflexes 2+ Psych/Mental Status: Mental status NL, Mood NL, Appropriate Affect, Intact Judgment - Laboratory Results Laboratory Results: Laboratory Results 04/20/17 06:00 Sodium 143 Potassium 3.7 Chloride 98 Carbon Dioxide 33 H BUN 21 H Creatinine 1.30 H Estimated Creat Clear 82 Est GFR ( Amer) > 60 Est GFR (Non-Af Amer) 59 L Glucose 185 H Calcium 9.3 Assessment/Plan - Assessment/Plan (1) CHF (congestive heart failure) Status: Acute Qualifiers: Qualified Code(s): I50.23 - Acute on chronic systolic (congestive) heart failure Narrative Support Text: Will start with IV lasix, monitor weight and oxygen requirements (2) Cardiomyopathy Status: Chronic Qualifiers: Cardiomyopathy type: ischemic Qualified Code(s): I25.5 - Ischemic cardiomyopathy Assessment: continue with home meds (3) Chronic renal disease Status: Chronic Qualifiers: Chronic kidney disease stage: stage 3 (moderate) Qualified Code(s): N18.3 - Chronic kidney disease, stage 3 (moderate) Assessment: monitor BUN, creat (4) Diabetes mellitus Status: Chronic Qualifiers: Diabetes mellitus type: type 2 Diabetes mellitus complication status: without complication Diabetes mellitus intermission coordinator insulin use: without intermission coordinator use Qualified Code(s): E11.9 - Type 2 diabetes mellitus without complications (5) Hypertension Status: Chronic Qualifiers: Hypertension type: essential hypertension Qualified Code(s): I10 - Essential (primary) hypertension Assessment: continue with home meds (6) Sleep apnea Status: Chronic Qualifiers: Sleep apnea type: obstructive Qualified Code(s): G47.33 - Obstructive sleep apnea (adult) (pediatric) Assessment: CPAP machine VTE Assessment - RISK FACTOR SCORE VTE RISK FACTOR SCORES: AGE OVER 60 YEARS, CONGESTIVE HEART FAILURE OR MYOCARDIAL INFARCTION - RISK VTE MODERATE RISK: SCORE OF 2 (RISK PROXIMAL DVT 2-4%) PROPHYAXIS NEEDED
[2017-04-20 14:08] VITALS: BP 104/68
--- NOTE | 2017-05-14 14:36 | Discharge Summary ---
Discharge Summary - Discharge Sumary History of Present Illness: 61yo male who develped some SOB last noc. Has a history of CHF. Patient states he has been having some increase swelling in the legs. Patient had some mild public symptoms. Patient denies any chest pain chest pressure TIA or CVA symptoms. Patient was seen in the ED was felt to be having some exacerbation of congestive heart failure. Chest x-ray consistent with CHF. Patient states that his hypertension has been stable. Patient has not missed any of his medications. Patient was subsequently admitted to the hospital for further care and evaluation. Home Medications: Ambulatory Orders Medication Instructions Recorded Empagliflozin [Jardiance] 10 mg PO DAILY #30 tablet 08/15/16 Sacubitril/Valsartan [Entresto 49 1 each PO BID #60 tablet 08/15/16 mg-51 mg Tablet] Metolazone [Zaroxolyn] 2.5 mg PO DIRECTED PRN #60 04/20/17 tablet Allergies/Adverse Reactions: Allergies Allergy/AdvReac Type Severity Reaction Status Date / Time PORFIRIO Inhibitors AdvReac Cough Verified 04/19/17 23:57 Discharge Summary: Patient was started on IV Lasix. Patient had good diruesis. Once patient was started on some Lasix and had some good urinary output he was able to maintain as SaO2 at an adequate level. Patient did not have any chest pain chest pressure. Patient orthotic symptoms improved. Patient peel edema improved. At the time of dismissal it was felt that the patient could be further monitored on an outpatient basis and patient was discharged in stable condition. Patient other chronic medical problems remain stable. - Final Diagnosis (1) CHF (congestive heart failure) Problems: improved (2) Cardiomyopathy Problems: stable (3) Chronic renal disease Problems: stable (4) Diabetes mellitus Problems: stable (5) Hypertension Problems: Stable. Patient was discharged to home medications. (6) Sleep apnea Problems: Stable patient with discharged was CPAP.
== END 2017-04-20 13:00 | disposition home or self-care (01) | DRG 293 ==
LOC: ED 20:35 → SOUTH 23:16
PROVIDERS: ADMIT Family Medicine; ATTEND Family Medicine
DX: I50.23 Acute on chronic systolic (congestive) heart failure (principal); I25.5 Ischemic cardiomyopathy; I12.9 Hypertensive chronic kidney disease with stage 1 through stage 4 chronic kidney disease, or unspecified chronic kidney disease; N18.3 Chronic kidney disease, stage 3 (moderate); E11.9 Type 2 diabetes mellitus without complications; E78.5 Hyperlipidemia, unspecified; G47.33 Obstructive sleep apnea (adult) (pediatric)
CPT/HCPCS: 36415; 71046; 80048; 80053; 81002; 83880; 84484; 85025; 85610; 85730; 93005; J1940; 99222; 99238; S1016

== ENCOUNTER 2017-05-15 02:04 | Emergency (ER) | payer OTHER ==
--- NOTE | 2017-05-15 02:07 | ED Physician Documentation ---
General Adult - HISTORIAN Historian: patient - HPI Stated Complaint: malaise, fatigue Chief Complaint: General Adult Onset: days ago Timing: still present Severity: moderate Further Comments: yes (Pt is a 61 yo male with hx CHF, DMII, who "hasn't been feeling well." Pt says he has no energy. He gets home from work and just wants to go to bed. Pt does not have any specific complaint. No chest pain, sob, no n/v. Pt complains of fatigue.) - ROS CONST: weakness, other (fatigue) EYES/ENT: none CVS/RESP: none GI/: none MS/SKIN/LYMPH: none NEURO/PSYCH: other (fatigue) - PAST HX Past History: other (CHF, DMII, COPD, HTN) Other History: none Allergies/Adverse Reactions: Allergies Allergy/AdvReac Type Severity Reaction Status Date / Time PORFIRIO Inhibitors AdvReac Cough Verified 05/15/17 02:16 Home Medications: Ambulatory Orders Medication Instructions Recorded Empagliflozin [Jardiance] 10 mg PO DAILY #30 tablet 08/15/16 Sacubitril/Valsartan [Entresto 49 1 each PO BID #60 tablet 08/15/16 mg-51 mg Tablet] Metolazone [Zaroxolyn] 2.5 mg PO DIRECTED PRN #60 04/20/17 tablet - SOCIAL HX Smoking History: quit greater than 1 year - FAMILY HX Family History: No - VITAL SIGNS Vital Signs: Vital Signs Temp Pulse Resp BP Pulse Ox 104/68 04/20/17 12:19 - REVIEWED ASSESSMENTS Nursing Assessment Reviewed: Yes Vitals Reviewed: Yes Progress - Progress Progress: Regular Insulin 10 units SC General Adult Physical Exam - PHYSICAL EXAM GENERAL APPEARANCE: mild distress EENT: pharynx normal NECK: normal inspection, supple RESPIRATORY: no resp distress, chest non-tender, breath sounds normal CVS: reg rate & rhythm, heart sounds normal ABDOMEN: soft, no organomegaly, normal bowel sounds BACK: normal inspection, no CVA tenderness SKIN: warm/dry, normal color EXTREMITIES: non-tender, normal range of motion, no evidence of injury, no edema NEURO: oriented X3, motor nml, sensation nml Discharge Clincal Impression: Elevated brain natriuretic peptide (BNP) level Hyperglycemia due to type 2 diabetes mellitus Qualifiers: Diabetes mellitus dedicated intermodal truck driver insulin use: without dedicated intermodal truck driver use Qualified Code(s ): E11.65 - Type 2 diabetes mellitus with hyperglycemia Referrals: Casie Willson MD [Primary Care Provider] - Condition: Stable Disposition: 01 HOME, SELF-CARE Decision to Admit: NO Decision Time: 03:56
[2017-05-15 02:28] LABS: BASOPHILS % 0.7 (0.0-1.5); EOSINOPHILS % 3.4 % (0.0-6.8); MEAN CORPUSCULAR HEMOGLOBIN 29.5 pg (28.0-34.0); MEAN CORPUSCULAR VOLUME 88.3 fl (80.0-100.0); MONOCYTES % 6.2 % (0.0-11.0); NEUTROPHILS # 2.7 # k/uL (1.4-7.7)
[2017-05-15 02:45] LABS: eGFR (African) > 60; eGFR (Non-African) 55
[2017-05-15] MEDS ORDERED: FUROSEMIDE 40 MG/4 ML VIAL IVP ONE (02:52)
[2017-05-15] MEDS ORDERED: INSULIN REGULAR, HUMAN 100 UNIT/ML 3ML VIAL IV ONE (02:53)
[2017-05-15] MEDS ORDERED: INSULIN REGULAR, HUMAN 100 UNIT/ML 3ML VIAL SQ ONE (03:28)
[2017-05-15] MEDS ORDERED: INSULIN REGULAR, HUMAN 100 UNIT in 0.9 % SODIUM CHLORIDE 100 ML IV ONE ×2 (03:28)
[2017-05-15 04:08] VITALS: BP 142/98
[2017-05-15 07:04] LABS: APPEARANCE,URINE CLEAR (CLEAR); COLOR,URINE YELLOW (YELLOW); OCCULT BLOOD,URINE NEGATIVE (NEGATIVE); PH URINE 6.5 (5.0 - 8.0); UROBILINOGEN URINE 0.2 Eu (0.2-1.0)
== END 2017-05-15 04:00 | disposition home or self-care (01) ==
LOC: ED 02:04
DX: E11.65 Type 2 diabetes mellitus with hyperglycemia (principal)
CPT/HCPCS: 80053; 81002; 83880; 85025; 96372; 99283; J1815; S1016

== ENCOUNTER 2017-06-11 08:50 | Outpatient (CLI) | payer OTHER ==
[2017-06-11 09:51] LABS: BASOPHILS % 0.5 (0.0-1.5); EOSINOPHILS % 2.1 % (0.0-6.8); MEAN CORPUSCULAR HEMOGLOBIN 29.6 pg (28.0-34.0); MEAN CORPUSCULAR VOLUME 87.4 fl (80.0-100.0); MONOCYTES % 5.6 % (0.0-11.0); NEUTROPHILS # 2.6 # k/uL (1.4-7.7)
[2017-06-11 10:21] LABS: eGFR (Non-African) > 60
--- NOTE | 2017-06-11 12:48 | Diagnostic Imaging Report ---
CHRIS MELGAR [facility] [address] [facility], [facility] [place] [address]. [id number] Report Submission Date: Jun 11, 2017 9:38:28 AM CDT Patient Study Name: RAYNA TAMEZ Date: Jun 11, 2017 9:11:08 AM CDT Modality Type: DX Gender: M Description: ABDOMEN : 53 Institution: [facility] Physician: CHRIS MELGAR Examination: Abdomen History: PT C/O LOSS OF APPETITE X 4 WEEKS. PT DENIES HAVING ANY ABDOMINAL SURGERIES (Hx) Findings: 2 views obtained of the abdomen. No abnormal dilation of the large or small bowel. Air and stool throughout the large bowel. No suspicious calcification projecting over the renal fossa or the lower pelvic region. Lumbar spine degenerative spurring. Impression: No obstruction. No suspicious calcifications by plain film sensitivity. Electronically signed on Jun 11, 2017 9:38:28 AM CDT by: Boo HALLMAN
== END 2017-06-11 08:52 ==
LOC: LAB 08:50
PROVIDERS: ATTEND Family Medicine
DX: E11.9 Type 2 diabetes mellitus without complications (principal); R68.81 Early satiety
CPT/HCPCS: 36415; 74018; 80053; 83036; 85025

== ENCOUNTER 2017-07-02 13:22 | Outpatient (CLI) | payer OTHER | END 2017-07-02 13:23 | LOC: CARD 13:22 | PROVIDERS: ATTEND Internal Medicine Cardiovascular Disease | DX: I50.9 Heart failure, unspecified (principal); I10 Essential (primary) hypertension; E78.00 Pure hypercholesterolemia, unspecified; E11.9 Type 2 diabetes mellitus without complications; N18.3 Chronic kidney disease, stage 3 (moderate); G47.30 Sleep apnea, unspecified | CPT/HCPCS: 99213 ==

== ENCOUNTER 2017-07-16 03:18 | Inpatient (IN) | payer OTHER ==
[2017-07-16] MEDS ORDERED: FUROSEMIDE 40 MG/4 ML VIAL IVP ONE ×2 (03:43→05:12)
[2017-07-16 03:53] LABS: BASOPHILS % 0.7 (0.0-1.5); EOSINOPHILS % 3.9 % (0.0-6.8); MEAN CORPUSCULAR HEMOGLOBIN 29.7 pg (28.0-34.0); MEAN CORPUSCULAR VOLUME 91.4 fl (80.0-100.0); MONOCYTES % 6.6 % (0.0-11.0); NEUTROPHILS # 3.3 # k/uL (1.4-7.7)
[2017-07-16 04:17] LABS: eGFR (African) > 60; eGFR (Non-African) 50
--- NOTE | 2017-07-16 05:07 | ED Physician Documentation ---
Dyspnea - HISTORIAN Historian: patient, spouse - HPI Stated Complaint: soa Chief Complaint: Dyspnea Onset: other (this afternoon) Duration: continues in ED Severity: moderate Exacerbated By: exertion, laying flat Associated Symptoms: denies: chills, fever, sweating, chest pain, chest discomfort Further Comments: yes (61 year old male patient presents with worsening dyspnea over the past 24 hours. RA Sat 85-86% on RA; O2 started at 4L. reports patient has not been wearing his CPAP for the past week.) - ROS CONST: no problems EYES/ENT: none GI/: none NEURO/PSYCH: denies: headache MS/SKIN/LYMPH: none - PAST HX Lung Disease: none Cardiac Disease: CHF, angina, other (HLD, HTN, DM, Gout, CKD - stage III, EF 20% , sleep apnea) PE Risk Factors: hypertension Other History: diabetes Type 2 Allergies/Adverse Reactions: Allergies Allergy/AdvReac Type Severity Reaction Status Date / Time PORFIRIO Inhibitors AdvReac Cough Verified 05/15/17 02:16 Home Medications: Ambulatory Orders Medication Instructions Recorded Empagliflozin [Jardiance] 10 mg PO DAILY #30 tablet 08/15/16 Sacubitril/Valsartan [Entresto 49 1 each PO BID #60 tablet 08/15/16 mg-51 mg Tablet] Insulin Degludec [Tresiba 10 units SQ D 07/16/17 Flextouch U-100] - SOCIAL HX Smoking History: non-smoker - FAMILY HX Family History: cardiac disease - VITAL SIGNS Vital Signs: Vital Signs Temp Pulse Resp BP Pulse Ox 98.6 F 102 H 26 H 156/106 96 07/16/17 03:22 07/16/17 04:30 07/16/17 03:22 07/16/17 03:22 07/16/17 04:30 - REVIEWED ASSESSMENTS Nursing Assessment Reviewed: Yes Vitals Reviewed: Yes Progress - Progress Progress: 0500 Patient starting to diuresis. 300-400cc urine output after lasix 40mg IV. Old records reviewed. Attempted trail without oxygen; Sat down to 85-86%. Discussed treatment options. Offered admission to [facility] or transfer to director of supply chain. Patient and prefer admission to Dr Willson. Additional lasix 40mg IV given. Will repeat Troponin in 4 hours. Call to Laury Yoon - accepted for admission. - EKG/XRAY/CT EKG: rhythm (SR, Rate 96; compared with 04/2017 EKG - lateral ischmia on both) ED Results Lab/Radiology - Lab Results Lab Results: Lab Results 07/16/17 07/16/17 07/16/17 03:48 03:48 03:48 WBC 5.00 K/ul K/ul (4.00-12.00) RBC 5.04 M/ul M/ul (3.90-5.20) Hgb 15.0 g/dL g/dL (12.0-18.0) Hct 46.1 % % (37.0-53.0) MCV 91.4 fl fl (80.0-100.0) MCH 29.7 pg pg (28.0-34.0) MCHC 32.5 g/dL g/dL (30.0-36.0) RDW 14.7 % H % (11.3-14.3) Plt Count 270 K/mm3 K/mm3 (130-400) Neut % (Auto) 65.4 % % (39.0-79.0) Lymph % (Auto) 21.3 % % (16.0-50.0) [place] % (Auto) 6.6 % % (0.0-11.0) Eos % (Auto) 3.9 % % (0.0-6.8) Baso % (Auto) 0.7 (0.0-1.5) Neut # (Auto) 3.3 # k/uL # k/uL (1.4-7.7) Lymph # (Auto) 1.1 # k/uL # k/uL (0.6-4.0) [place] # (Auto) 0.3 # k/uL # k/uL (0.0-0.9) Eos # (Auto) 0.2 # k/uL # k/uL (0.0-0.6) Baso # (Auto) 0.0 # k/uL # k/uL (0.0-0.5) Reactive Lymphs % 2.1 % % (0.0-5.0) Reactive Lymphs # 0.1 # k/uL # k/uL (0.0-0.8) Sodium 140 mmol/L mmol/L (136-145) Potassium 3.8 mmol/L mmol/L (3.5-5.1) Chloride 100 mmol/L mmol/L (98-107) Carbon Dioxide 31 mmol/L H mmol/L (22-30) BUN 25 mg/dL H mg/dL (9-20) Creatinine 1.50 mg/dL H mg/dL (0.66-1.25) Estimated Creat Clear 67 Est GFR ( Amer) > 60 (60 - ) Est GFR (Non-Af Amer) 50 L (60 - ) Glucose 239 mg/dL H mg/dL (74-106) Calcium 9.3 mg/dL mg/dL (8.4-10.2) Total Bilirubin 0.4 mg/dL mg/dL (0.2-1.3) AST 28 U/L U/L (15-46) ALT 27 U/L U/L (13-69) Alkaline Phosphatase 82 U/L U/L (38-126) NT-Pro-B Natriuret Pep 1590.7 pg/mL H pg/mL (15.0-125.0) Total Protein 7.7 g/dL g/dL (6.3-8.2) Albumin 4.4 g/dL g/dL (3.5-5.0) - Radiology Radiology Impressions: Chest 2 views Date of Exam: July 16, 2017. History: SHORTNESS OF BREATH (Hx) / ITS.REASON shortness of breath Findings: No comparison studies are provided. Bilateral lower lobe infiltrates and hazy lung parenchymal opacification is present. The cardiac and mediastinal silhouettes are normal. The trachea is midline. The pulmonary vascularity is within normal limits. Impression: Bilateral lower lobe infiltrates and hazy lung parenchymal opacification. Electronically signed on July 16, 2017 4:21:21 AM CDT by: Fatemeh Mustafa - Orders Orders: ED Orders Category Date Time Status Continuous EKG monitoring Q30M Care 07/16/17 03:41 Active Continuous Pulse Oximetry Q30M Care 07/16/17 03:[address] IV Lock 1T Care 07/16/17 03:41 Active CHEST 2VIEW [RAD] Stat Exams 07/16/17 03:41 Taken CBC/PLATELET/DIFF Routine Lab 07/16/17 03:48 Completed CMP Routine Lab 07/16/17 03:48 Completed NT-proBNP Stat Lab 07/16/17 03:48 Completed TROPONIN I (cTnI) Stat Lab 07/16/17 04:54 Received Furosemide [Lasix] Med 07/16/17 03:43 Discontinued 40 mg IVP NOW ONE EKG WITH COMPARISON Stat Ther 07/16/17 03:41 Ordered Dyspnea Physical Exam - EXAM General Appearance: mild distress EENT: eye inspection normal, ENT inspection normal, pharynx normal, no signs of dehydration, QUINTON, no nystagmus, TM's nml Respiratory: no resp. distress, no pain on inspiration, speaks full sentences, rales (bilateral bases) CVS: reg. rate & rhythm, no murmur, no gallop, no friction rub, pulses full, pulses equal Abdomen: non-tender, no organomegaly, no distention, no ascites Skin: color nml, no rash, warm, nml palp., dry Extremities: non-tender, normal range of motion, no evidence of injury, edema Neuro/Psych: oriented x3, CN's nml as tested, motor nml, sensation nml, mood/ affect nml Discharge Clincal Impression: CHF (congestive heart failure) Qualifiers: Heart failure type: combined systolic and diastolic Heart failure chronicity: acute Qualified Code(s): I50.41 - Acute combined systolic (congestive) and diastolic (congestive) heart failure Referrals: Casie Willson MD [Primary Care Provider] - 2 Days Condition: Stable Disposition: ADMITTED INPATIENT Decision to Admit: [id number] Decision Time: 05:24
[2017-07-16] MEDS ORDERED: POTASSIUM CHLORIDE 20 MEQ TABLET.ER PO ONE (05:12)
[2017-07-16] MEDS ORDERED: POTASSIUM CHLORIDE 20 MEQ TABLET.ER ONE (05:14)
[2017-07-16] MEDS ORDERED: FUROSEMIDE 40 MG TABLET PO ONE (05:26)
[2017-07-16] MEDS ORDERED: INDOMETHACIN 50 MG PO SCH (05:30)
[2017-07-16] MEDS ORDERED: FUROSEMIDE 40 MG/4 ML VIAL IVP SCH (06:00)
--- NOTE | 2017-07-16 06:10 | Diagnostic Imaging Report ---
CORIE WALLACE (SLAG EXPANDER) - ER [facility] [address] [facility] [address] Report Submission Date: July 16, 2017 4:21:21 AM CDT Patient Study Name: RAYNA TAMEZ Date: July 16, 2017 3:57:12 AM CDT Modality Type: DX Gender: M Description: CHEST : 53 Institution: [facility] Physician: CORIE WALLACE (SLAG EXPANDER) - ER Chest 2 views Date of Exam: July 16, 2017. History: SHORTNESS OF BREATH (Hx) / ITS.REASON shortness of breath Findings: No comparison studies are provided. Bilateral lower lobe infiltrates and hazy lung parenchymal opacification is present. The cardiac and mediastinal silhouettes are normal. The trachea is midline. The pulmonary vascularity is within normal limits. Impression: Bilateral lower lobe infiltrates and hazy lung parenchymal opacification. Electronically signed on July 16, 2017 4:21:21 AM CDT by: Fatemeh HALLMAN
[2017-07-16 06:15] VITALS: BMI 29.8
[2017-07-16] MEDS ORDERED: CARVEDILOL 12.5 MG TABLET PO ONE ×2 (06:40→13:33)
[2017-07-16] MEDS: CARVEDILOL 25 MG TABLET PO SCH ×2 (07:13→08:10)
[2017-07-16] MEDS: POTASSIUM CHLORIDE 20 MEQ TABLET.ER PO SCH ×2 (07:13→08:11)
[2017-07-16] MEDS: METOLAZONE 2.5 MG TABLET PO SCH ×2 (07:14→08:11)
--- NOTE | 2017-07-16 08:07 | History and Physical Report ---
History of Present Illnes - History of Present Illness Reason for Visit: Dyspnea History of Present Illness: Patient presented to the ER with acute dyspnea. Found to be hypoxic on RA at 85% and with pulmonary edema and elevated BNP. He says he has been feeling ok but has had company and gave them his bed - sleeping on an air mattress so not sleeping well. says he has not been using his CPAP. He says he is having issues with the mask and plans to call [facility] [place] about trying a different one. Denies CP. Has DM. Reports he is taking his meds as directed. He was given IV lasix in ER but unable to wean off O2. Now that he is here on the floor, he is feeling better. 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 Retiring from [employer] 08-18-17 Alcohol: None Drugs: None Lives: With Family - Health Maintenance Health Maintenance: Colonoscopy Influenza Vaccine: Current for this Influenza Season Pneumonia Vaccine: Yes Resuscitation Status: Resusciation Status Resuscitation Status Full Code Review of Systems - Review of Systems Constitutional: negative: Fever, Weakness Eyes: negative: vision change ENT: negative: Ear Pain Respiratory: Cough (mild), Shortness of Breath, SOB with Excertion Cardiovascular: negative: Chest Pain, Palpitations Gastrointestinal: negative: Nausea, Vomiting, Abdominal Pain, Diarrhea, Constipation Genitourinary: negative: Dysuria Musculoskeletal: negative: Neck Pain Skin: negative: Rash Neurological: negative: Weakness - Medications/Allergies Allergies/Adverse Reactions: Allergies Allergy/AdvReac Type Severity Reaction Status Date / Time PORFIRIO Inhibitors AdvReac Cough Verified 05/15/17 02:16 Home Medications: Home Medications Insulin Degludec [Tresiba Flextouch U-100] 10 units SQ D 07/16/17 Current Inpatient Medications: Current Inpatient Medications Carvedilol (Coreg) 25 mg PO BID [facility] Last Admin: 07/16/17 07:13 Dose: Not Given Enoxaparin Sodium (Lovenox) 40 mg SQ QD [facility] Stop: 07/30/17 07:59 Fluticasone Propionate (Flonase Nasal [place]) 2 spray NS BID [facility] Furosemide (Lasix) 40 mg IVP 714 [facility] Glipizide (Glucotrol[place] [address] [facility] Insulin Detemir (Levemir Flex-Pen) 10 unit SQ HS [facility] Metformin HCl (Glucophage) 1,000 mg PO BID [facility] Metolazone (Zaroxolyn) 5 mg PO DAILY [facility] Last Admin: 07/16/17 07:14 Dose: Not Given Miscellaneous (Sacubitril/Valsartan [Entresto 49 Mg-51 Mg Tablet]) 1 each PO BID [facility] Miscellaneous (Chem Sticks) 1 each CHEMQID [facility] Last Admin: 07/16/17 08:00 Dose: 1 each Potassium Chloride (Klor-Con M20) 20 meq PO DAILY [facility] Last Admin: 07/16/17 07:13 Dose: Not Given Sodium Chloride (Normal Saline Flush) 3 ml IV BID [facility] Exam - Exam Vital Signs: Vital Signs (72 hours) 07/16/17 07/16/17 07/16/17 05:29 05:37 05:43 Temperature Pulse Rate 93 H Pulse Rate [ 100 H Pulse ox] Respiratory 23 Rate Blood Pressure 140/94 [Left Arm] O2 Sat by Pulse 96 96 Oximetry 07/16/17 07/16/17 07/16/17 05:52 06:00 06:20 Temperature 98.3 F 98.3 F Pulse Rate 96 H Pulse Rate [ 92 H 92 H Pulse ox] Respiratory 18 18 Rate Blood Pressure 125/93 125/93 [Left Arm] O2 Sat by Pulse 96 96 Oximetry 07/16/17 07/16/17 06:34 07:53 Temperature Pulse Rate 91 H 95 H Pulse Rate [ Pulse ox] Respiratory Rate Blood Pressure [Left Arm] O2 Sat by Pulse Oximetry General: Alert, Oriented to Person, Oriented to Place, Oriented to Time, Cooperative, No acute distress HEENT: Atraumatic, PERRLA, EOMI, Mouth Mucous membr. moist/[place] Neck: Normal Range of Motion Lungs: Clear to auscultation Cardiovascular: Regular rate Murmur: Systolic Murmur Abdomen: Normal bowel sounds, Soft Integumentary: Normal Extremities: No edema Neurological: Normal gait, Normal speech, Strength Equal Bilat, Cranial nerves 3 -12 NL Psych/Mental Status: Mental status NL, Mood NL, Appropriate Affect, Intact Judgment Assessment/Plan - Assessment/Plan (1) BOWEN (obstructive sleep apnea) Status: Chronic Current Visit: Yes Plan: Explained to patient the relationship between poorly controlled BOWEN and CHF exacerbations. He will be calling [facility] about his mask. Will ask his to bring his in so he can use it here. (2) CHF (congestive heart failure) Status: Acute Current Visit: Yes Qualifiers: Qualified Code(s): I50.23 - Acute on chronic systolic (congestive) heart failure Plan: IV diruesis today. Continue home meds. Will ask Dr. Caldwell to see him. Serial troponins and EKG's. Suspect uncontrolled BOWEN as cause. CXR shows pulmonary edema but radiology calls B infiltrates. Will repeat tomorrow after diuresis - no signs of pneumonia. (3) Cardiomyopathy Status: Chronic Current Visit: Yes Qualifiers: Cardiomyopathy type: ischemic Qualified Code(s): I25.5 - Ischemic cardiomyopathy (4) Diabetes mellitus Status: Chronic Current Visit: No Qualifiers: Diabetes mellitus type: type 2 Diabetes mellitus complication status: without complication Diabetes mellitus termination clerk insulin use: without termination clerk use Qualified Code(s): E11.9 - Type 2 diabetes mellitus without complications Plan: Will do chemsticks and watch. Consider SSI. VTE Assessment - RISK FACTOR SCORE VTE RISK FACTOR SCORES: AGE OVER 60 YEARS, CONGESTIVE HEART FAILURE OR MYOCARDIAL INFARCTION - RISK VTE MODERATE RISK: SCORE OF 2 (RISK PROXIMAL DVT 2-4%) PROPHYAXIS NEEDED
[2017-07-16] MEDS: ENOXAPARIN SODIUM 40 MG/0.4 ML DISP.SYRIN SQ SCH (08:09)
[2017-07-16] MEDS: FLUTICASONE PROPIONATE 120 SPRAY/16 GR BOTTLE NS SCH ×2 (08:10→20:16)
[2017-07-16] MEDS: SALINE FLUSH 10 ML DISP.SYRIN IV SCH ×2 (08:11→20:18)
[2017-07-16] MEDS ORDERED: EMPAGLIFLOZIN 10 MG PO SCH (09:00)
[2017-07-16] MEDS ORDERED: INSULIN DEGLUDEC 10 UNIT SQ SCH (09:00)
[2017-07-16] MEDS ORDERED: GLIPIZIDE 10 MG PO SCH (09:00)
[2017-07-16] MEDS: PATIENT OWN MED 1 EACH EACH PO SCH (13:37)
[2017-07-16] MEDS: FUROSEMIDE 40 MG/4 ML VIAL IVP SCH (13:37)
[2017-07-16] MEDS: SACUBITRIL PO SCH ×2 (13:37→20:18)
[2017-07-16] MEDS: VALSARTAN PO SCH ×2 (13:37→20:18)
[2017-07-16] MEDS: CARVEDILOL 12.5 MG TABLET PO SCH (20:19)
[2017-07-16] MEDS ORDERED: INSULIN DETEMIR 100 UNIT/ML 3ML PEN.INJCTR SQ SCH (21:00)
[2017-07-17] MEDS: FUROSEMIDE 40 MG/4 ML VIAL IVP SCH (06:51)
[2017-07-17 06:57] LABS: MEAN CORPUSCULAR HEMOGLOBIN 29.5 pg (28.0-34.0); MEAN CORPUSCULAR VOLUME 90.9 fl (80.0-100.0)
[2017-07-17 07:09] LABS: eGFR (African) > 60; eGFR (Non-African) 59
[2017-07-17 08:06] VITALS: BP 103/66
--- NOTE | 2017-07-17 08:19 | Discharge Summary ---
Discharge Summary - Discharge Sumary History of Present Illness: Patient presented to the ER with acute dyspnea. Found to be hypoxic on RA at 85% and with pulmonary edema and elevated BNP. He says he has been feeling ok but has had company and gave them his bed - sleeping on an air mattress so not sleeping well. says he has not been using his CPAP. He says he is having issues with the mask and plans to call [facility] about trying a different one. Denies CP. Has DM. Reports he is taking his meds as directed. He was given IV lasix in ER but unable to wean off O2. Now that he is here on the floor, he is feeling better. Condition at Discharge: Stable Home Medications: Ambulatory Orders Medication Instructions Recorded Empagliflozin [Jardiance] 10 mg PO DAILY #30 tablet 08/15/16 Sacubitril/Valsartan [Entresto 49 1 each PO BID #60 tablet 08/15/16 mg-51 mg Tablet] Insulin Degludec [Tresiba 10 units SQ D 07/16/17 Flextouch U-100] Consultations this Visit: None Procedures this Visit: None Allergies/Adverse Reactions: Allergies Allergy/AdvReac Type Severity Reaction Status Date / Time PORFIRIO Inhibitors AdvReac Cough Verified 05/15/17 02:16 Patient Problems: Current Active Problems Problem Status Onset CHF (congestive heart failure) Acute Congestive heart failure Acute Cardiomyopathy Chronic BOWEN (obstructive sleep apnea) Chronic Discharge Summary: Patient admitted with CHF exacerbation and hypoxia most likely due to not wearing CPAP. He was diuresed with IV lasix and responded well. Breathing improved, CXR improved, weight improved. He was able to wean off O2. CHF meds are "maximized" so no changes made. On the day of discharge, BP was a little soft so coreg held. I did ask him to cut in half until BP normalizes after being off IV lasix and to watch BP closely at home. Encouraged him to wear CPAP. Will have close f/u with cardiology and myself. Hospital Course: Discharge Dx. CHF exacerbation. BOWEN. Disposition - home
[2017-07-17] MEDS: METOLAZONE 2.5 MG TABLET PO SCH (08:40)
[2017-07-17] MEDS: FLUTICASONE PROPIONATE 120 SPRAY/16 GR BOTTLE NS SCH (08:40)
[2017-07-17] MEDS: POTASSIUM CHLORIDE 20 MEQ TABLET.ER PO SCH (08:40)
[2017-07-17] MEDS: ENOXAPARIN SODIUM 40 MG/0.4 ML DISP.SYRIN SQ SCH (08:40)
[2017-07-17] MEDS: SALINE FLUSH 10 ML DISP.SYRIN IV SCH (08:41)
[2017-07-17] MEDS: VALSARTAN PO SCH (08:41)
[2017-07-17] MEDS: SACUBITRIL PO SCH (08:41)
[2017-07-17] MEDS: CARVEDILOL 12.5 MG TABLET PO SCH (08:42)
[2017-07-17] MEDS: PATIENT OWN MED 1 EACH EACH PO SCH (08:42)
--- NOTE | 2017-07-17 17:34 | Diagnostic Imaging Report ---
CHRIS MELGAR [facility] [address] [facility] [address] [address] Report Submission Date: July 17, 2017 8:01:56 AM CDT Patient Study Name: RAYNA TAMEZ Date: July 17, 2017 6:50:34 AM CDT Modality Type: DX Gender: M Description: CHEST : 53 Institution: [facility] Physician: CHRIS MELGAR Examination: PA and lateral chest. History: SOB, PT STATES FEELING A LITTLE BETTER TODAY (Hx) Comparison exam: 16 Jul 2017 Findings: PA lateral chest demonstrate a normal cardiac and mediastinal silhouette. Tortuous aorta. Significant improvement of the bilateral parenchymal hazy infiltrates. No blunting of the costophrenic margins. Osseous structures are appropriate for age. Impression: Significant improvement of the bilateral parenchymal infiltrates. No effusion. Electronically signed on July 17, 2017 8:01:56 AM CDT by: Boo HALLMAN
== END 2017-07-17 09:15 | disposition home or self-care (01) | DRG 293 ==
LOC: ED 03:18 → SOUTH 05:13
PROVIDERS: ADMIT Family Medicine; ATTEND Family Medicine
DX: I50.9 Heart failure, unspecified (principal); G47.33 Obstructive sleep apnea (adult) (pediatric)
CPT/HCPCS: 71046; 80048; 80053; 82550; 82553; 83880; 84484; 85025; 85027; 93005; A9270; J1650; J1815; J1940; 96374; 96376; 99222; 99238; S1016

== ENCOUNTER 2017-09-24 00:38 | Emergency (ER) | payer OTHER ==
[2017-09-24 01:24] LABS: MEAN CORPUSCULAR HEMOGLOBIN 30.7 pg (28.0-34.0); MEAN CORPUSCULAR VOLUME 92.1 fl (80.0-100.0)
[2017-09-24 01:25] LABS: BASOPHILS % 0.5 (0.0-1.5); EOSINOPHILS % 3.2 % (0.0-6.8); MONOCYTES % 5.8 % (0.0-11.0); NEUTROPHILS # 2.8 # k/uL (1.4-7.7)
[2017-09-24 01:34] LABS: eGFR (African) > 60; eGFR (Non-African) 50
--- NOTE | 2017-09-24 01:49 | ED Physician Documentation ---
General Adult - HISTORIAN Historian: patient - HPI Stated Complaint: cant sleep Chief Complaint: General Adult Further Comments: yes (61 year old male patient presents with difficulty sleeping for the past week. States he cannot sleep through the night. Denies dyspnea, or noctural dyspnea, denies chest pain, denies edema in ankles or feet. ) - ROS CONST: no problems EYES/ENT: none CVS/RESP: none GI/: none MS/SKIN/LYMPH: none NEURO/PSYCH: denies: headache - PAST HX Past History: CHF, hypertension Other History: diabetes Type 2 Allergies/Adverse Reactions: Allergies Allergy/AdvReac Type Severity Reaction Status Date / Time PORFIRIO Inhibitors AdvReac Cough Verified 09/24/17 01:11 Home Medications: Ambulatory Orders Medication Instructions Recorded Empagliflozin [Jardiance] 10 mg PO DAILY #30 tablet 08/15/16 Sacubitril/Valsartan [Entresto 49 1 each PO BID #60 tablet 08/15/16 mg-51 mg Tablet] Insulin Degludec [Tresiba 10 units SQ D 07/16/17 Flextouch U-100] - SOCIAL HX Smoking History: non-smoker - FAMILY HX Family History: No - VITAL SIGNS Vital Signs: Vital Signs Temp Pulse Resp BP Pulse Ox 98.1 F 94 H 18 125/94 97 09/24/17 00:38 09/24/17 00:38 09/24/17 00:38 09/24/17 00:38 09/24/17 00:38 - REVIEWED ASSESSMENTS Nursing Assessment Reviewed: Yes Vitals Reviewed: Yes Progress - Progress Progress: Patient reports his CPAP machine is not working right, he has called the company to get it fixed. Reports his recently, was on [facility]ospice. lab reviewed with patient. BNP at his baseline. Patient does not want xanax. Will try 1 dose Restoril. Instructed patient to try 1-2 tabs of benadryl QHS, limit caffeine after 6-7pm. Follow up with Dr Willson next week if he continues to have insomnia. ED Results Lab/Radiology - Lab Results Lab Results: Lab Results 09/24/17 09/24/17 09/24/17 01:23 01:13 01:13 WBC 4.24 K/ul K/ul (4.00-12.00) RBC 4.65 M/ul M/ul (3.90-5.20) Hgb 14.3 g/dL g/dL (12.0-18.0) Hct 42.8 % % (37.0-53.0) MCV 92.1 fl fl (80.0-100.0) MCH 30.7 pg pg (28.0-34.0) MCHC 33.3 g/dL g/dL (30.0-36.0) RDW 14.0 % % (11.3-14.3) Plt Count 284 K/mm3 K/mm3 (130-400) Neut % (Auto) 66.0 % % (39.0-79.0) Lymph % (Auto) 21.2 % % (16.0-50.0) [place] % (Auto) 5.8 % % (0.0-11.0) Eos % (Auto) 3.2 % % (0.0-6.8) Baso % (Auto) 0.5 (0.0-1.5) Neut # (Auto) 2.8 # k/uL # k/uL (1.4-7.7) Lymph # (Auto) 0.9 # k/uL # k/uL (0.6-4.0) [place] # (Auto) 0.3 # k/uL # k/uL (0.0-0.9) Eos # (Auto) 0.1 # k/uL # k/uL (0.0-0.6) Baso # (Auto) 0.0 # k/uL # k/uL (0.0-0.5) Reactive Lymphs % 3.2 % % (0.0-5.0) Reactive Lymphs # 0.1 # k/uL # k/uL (0.0-0.8) Sodium 140 mmol/L mmol/L (136-145) Potassium 3.7 mmol/L mmol/L (3.5-5.1) Chloride 102 mmol/L mmol/L (98-107) BUN 29 mg/dL H mg/dL (9-20) Creatinine 1.50 mg/dL H mg/dL (0.66-1.25) Estimated Creat Clear 72 Est GFR ( Amer) > 60 (60 - ) Est GFR (Non-Af Amer) 50 L (60 - ) Glucose 130 mg/dL H mg/dL (74-106) Total Bilirubin 0.5 mg/dL mg/dL (0.2-1.3) AST 16 U/L U/L (15-46) ALT 21 U/L U/L (13-69) Alkaline Phosphatase 69 U/L U/L (38-126) NT-Pro-B Natriuret Pep 1288.8 pg/mL H pg/mL (15.0-125.0) Total Protein 6.9 g/dL g/dL (6.3-8.2) Albumin 3.9 g/dL g/dL (3.5-5.0) - Orders Orders: ED Orders Category Date Time Status BNP [NT-proBNP] Stat Lab 09/24/17 01:13 Completed CBC/PLATELET/DIFF Stat Lab 09/24/17 01:23 Completed CMP Stat Lab 09/24/17 01:13 Completed Alprazolam [Xanax] Med 09/24/17 01:37 Discontinued 0.5 mg PO NOW ONE General Adult Physical Exam - PHYSICAL EXAM GENERAL APPEARANCE: [id number] N EENT: eye inspection normal, ENT inspection normal, pharynx normal, no signs of dehydration, QUINTON, no nystagmus, TM's nml RESPIRATORY: no resp distress, chest non-tender, breath sounds normal CVS: reg rate & rhythm, heart sounds normal, equal pulses, no murmur, no gallop , PMI nml, no JVD, no friction rub, 24 ABDOMEN: soft, no organomegaly, normal bowel sounds, no abdominal bruit, no distension BACK: normal inspection, no CVA tenderness SKIN: normal color, warm/dry, NR, INT, PAL, DR EXTREMITIES: non-tender, normal range of motion, no evidence of injury, no edema , J, 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 It should help you sleep. Try Benadryl 1 - 2 tab before bed for insomnia. Follow up next week with your doctor if you are not sleeping better. Condition: Stable Disposition: HOME, SELF-CARE Decision to Admit: NO Decision Time: 01:48
[2017-09-24] MEDS: ALPRAZOLAM 0.5 MG TABLET PO ONE (01:52)
[2017-09-24] MEDS ORDERED: TEMAZEPAM 15 MG CAP ONE (01:56)
[2017-09-24] MEDS: TEMAZEPAM 15 MG CAP PO ONE (02:02)
[2017-09-24 02:12] VITALS: BP 117/85
== END 2017-09-24 02:04 | disposition home or self-care (01) ==
LOC: ED 00:38
DX: G47.00 Insomnia, unspecified (principal)
CPT/HCPCS: 80053; 83880; 85025; 99282

== ENCOUNTER 2017-10-12 04:22 | Emergency (ER) | payer OTHER ==
[2017-10-12] MEDS ORDERED: TEMAZEPAM 15 MG CAP PO ONE (04:38)
--- NOTE | 2017-10-12 04:46 | ED Physician Documentation ---
General Adult - HISTORIAN Historian: patient - HPI Stated Complaint: "Can't sleep" Chief Complaint: General Adult Additional Information: Unable to sleep. Falls asleep sitting on the couch but wakes up after a short time. If he lies down to sleep, he feels "uneasy" and gets ups. He has not been short of breath, had chest pain or edema. recently . HX CHF, BOWEN. His CPAP broke but he has been using his brother's. This has not helped him sleep. Seen in this ER 09/25 with same complaint. Says Restoril helped him sleep. He has not seen Dr. Willson since. - ROS CONST: no problems. denies: fever - PAST HX Past History: CHF, other (BOWEN) Allergies/Adverse Reactions: Allergies Allergy/AdvReac Type Severity Reaction Status Date / Time PORFIRIO Inhibitors AdvReac Cough Verified 10/12/17 04:35 Home Medications: Ambulatory Orders Medication Instructions Recorded Empagliflozin [Jardiance] 10 mg PO DAILY #30 tablet 08/15/16 Sacubitril/Valsartan [Entresto 49 1 each PO BID #60 tablet 08/15/16 mg-51 mg Tablet] Insulin Degludec [Tresiba 10 units SQ D 07/16/17 Flextouch U-100] Temazepam [Restoril] 15 mg PO HS #10 capsule 10/12/17 - SOCIAL HX Smoking History: non-smoker - FAMILY HX Family History: No - VITAL SIGNS Vital Signs: Vital Signs Temp Pulse Resp BP Pulse Ox 97.8 F 64 16 141/93 98 10/12/17 04:31 10/12/17 04:31 10/12/17 04:31 10/12/17 04:31 10/12/17 04:31 - REVIEWED ASSESSMENTS Nursing Assessment Reviewed: Yes Vitals Reviewed: Yes ED Results Lab/Radiology - Orders Orders: ED Orders Category Date Time Status Temazepam Med 10/12/17 04:38 Once 15 mg PO HS ONE General Adult Physical Exam - PHYSICAL EXAM GENERAL APPEARANCE: mild distress (anxious) EENT: eye inspection normal, ENT inspection normal NECK: normal inspection RESPIRATORY: breath sounds normal. No: wheezes, rales CVS: reg rate & rhythm, heart sounds normal, no murmur BACK: normal inspection SKIN: warm/dry, normal color EXTREMITIES: normal range of motion (gait and stance), no evidence of injury, no edema NEURO: CN's nml as tested, motor nml, sensation nml, cognition normal Discharge Clincal Impression: Insomnia Prescriptions: Temazepam [Restoril] 15 mg PO HS #10 capsule Referrals: Casie Willson MD [Primary Care Provider] - 2 Days Condition: Good Disposition: 01 HOME, SELF-CARE Decision to Admit: NO Decision Time: 04:49
[2017-10-12 04:59] VITALS: BP 139/96
== END 2017-10-12 04:50 | disposition home or self-care (01) ==
LOC: ED 04:22
DX: G47.00 Insomnia, unspecified (principal)
CPT/HCPCS: 99282

== ENCOUNTER 2017-10-15 12:10 | Outpatient (CLI) | payer OTHER | END 2017-10-15 12:13 | LOC: LAB 12:10 | PROVIDERS: ATTEND Family Medicine | DX: E11.9 Type 2 diabetes mellitus without complications (principal) | CPT/HCPCS: 36415; 83036 ==

== ENCOUNTER 2018-01-03 13:30 | Emergency (ER) | payer SELFPAY ==
--- NOTE | 2018-01-03 13:43 | ED Physician Documentation ---
General Adult - HISTORIAN Historian: patient - HPI Stated Complaint: weakness Chief Complaint: General Adult Onset: days ago (7) Timing: still present Severity: mild Further Comments: yes (He reports fatigue for over a week. He reports that he has no additional swelling or feeling like he is "full of fluid" but general fatigue. Walking to the car, carrying boxes or other things he normally has no complaints with. He denies any fever. He has had decreased appetitie for a "while" he states Dr Willson is aware.) Last known Well Code/Unknown Code: Unknown - ROS CONST: weakness, weight loss (has had a decrease in appetitie for "a while" ) CVS/RESP: shortness of breath. denies: chest pain, cough GI/: denies: abdominal pain, vomiting, nausea, diarrhea MS/SKIN/LYMPH: denies: rash NEURO/PSYCH: denies: headache, fainting, dizziness, numbness, difficulty walking, difficulty with speech, anxiety - PAST HX Past History: CHF Allergies/Adverse Reactions: Allergies Allergy/AdvReac Type Severity Reaction Status Date / Time PORFIRIO Inhibitors AdvReac Cough Verified 01/03/18 14:44 Home Medications: Ambulatory Orders Medication Instructions Recorded Sacubitril/Valsartan [Entresto 49 1 each PO BID #60 tablet 08/15/16 mg-51 mg Tablet] Temazepam [Restoril] 15 mg PO HS #10 capsule 10/12/17 - SOCIAL HX Smoking History: non-smoker Alcohol Use: none Drug Use: none - FAMILY HX Family History: No - VITAL SIGNS Vital Signs: Vital Signs Temp Pulse Resp BP Pulse Ox 139/96 10/12/17 04:59 - REVIEWED ASSESSMENTS Nursing Assessment Reviewed: Yes Vitals Reviewed: Yes Progress - Progress Progress: 1510: discussed case with Dr Willson DG ED Results Lab/Radiology - Radiology Radiology Impressions: Examination: PA and lateral chest. History: Evaluate lung nieves. CHF, NON-SMOKER (Hx) Comparison exam: 17 Jul 2017 Findings: PA and lateral views of the chest demonstrates a prominent cardiac silhouette. Elevated right hemidiaphragm. Bilateral parenchymal haziness. No definite costophrenic margin blunting. Osseous degenerative changes. Impression: Poor inspiratory effort. Interstitial prominence suggesting increased volume status. No gross effusion. Electronically signed on Jan 03, 2018 3:54:55 PM WOOD BLOCK ARTIST by: Boo Harding General Adult Physical Exam - PHYSICAL EXAM GENERAL APPEARANCE: no distress EENT: eye inspection normal, ENT inspection normal, pharynx normal, dry mucous membranes NECK: normal inspection RESPIRATORY: no resp distress, chest non-tender, breath sounds normal CVS: reg rate & rhythm, heart sounds normal, equal pulses, no murmur ABDOMEN: soft, normal bowel sounds, no distension, non-tender SKIN: warm/dry, normal color EXTREMITIES: non-tender, normal range of motion, no evidence of injury, no edema NEURO: oriented X3, CN's nml as tested, motor nml, sensation nml, mood/affect nml, cognition normal Discharge Clincal Impression: Elevated brain natriuretic peptide (BNP) level Referrals: Casie Willson MD [Primary Care Provider] - 2 Days Additional Instructions: 1. Continue meds as prescribed 2. Call Dr Ramos office today and see about cardiology set up (if not Dr Willson office will get a referral) 3. See PCP early next week 4. Return to ER for any concerns Condition: Stable Disposition: 01 HOME, SELF-CARE Decision to Admit: NO Date of Decison to Admit: 01/03/18 Decision Time: 15:58
[2018-01-03 14:16] LABS: BASOPHILS % 0.3 (0.0-1.5); EOSINOPHILS % 1.6 % (0.0-6.8); MEAN CORPUSCULAR HEMOGLOBIN 29.5 pg (28.0-34.0); MONOCYTES % 8.2 % (0.0-11.0); NEUTROPHILS # 4.7 # k/uL (1.4-7.7)
[2018-01-03] MEDS ORDERED: 0.9 % SODIUM CHLORIDE 1,000 ML IV ONE (14:23)
[2018-01-03 14:32] LABS: eGFR (Non-African) 54
[2018-01-03] MEDS: 0.9 % SODIUM CHLORIDE 1,000 ML IV SCH (14:32)
[2018-01-03] MEDS: FUROSEMIDE 20 MG/2 ML VIAL IVP ONE (15:38)
[2018-01-03 16:11] VITALS: BP 137/99
[2018-01-03 17:13] LABS: APPEARANCE,URINE CLEAR (CLEAR); COLOR,URINE YELLOW (YELLOW); OCCULT BLOOD,URINE NEGATIVE (NEGATIVE)
[2018-01-03 17:14] LABS: UROBILINOGEN URINE 0.2 Eu (0.2-1.0)
--- NOTE | 2018-01-03 19:07 | Diagnostic Imaging Report ---
JACQUELINE GARDNER [facility] [address] [facility] [address] [place], [place]. [address] Report Submission Date: Jan 03, 2018 3:54:55 PM SYNTHETIC PLASTERER Patient Study Name: RAYNA TAMEZ Date: Jan 03, 2018 3:09:14 PM SYNTHETIC PLASTERER Modality Type: DX Gender: M Description: CHEST : 53 Institution: [facility] Physician: JACQUELINE GARDNER Examination: PA and lateral chest. History: Evaluate lung nieves. CHF, NON-SMOKER (Hx) Comparison exam: 17 Jul 2017 Findings: PA and lateral views of the chest demonstrates a prominent cardiac silhouette. Elevated right hemidiaphragm. Bilateral parenchymal haziness. No definite costophrenic margin blunting. Osseous degenerative changes. Impression: Poor inspiratory effort. Interstitial prominence suggesting increased volume status. No gross effusion. Electronically signed on Jan 03, 2018 3:54:55 PM SYNTHETIC PLASTERER by: Boo HALLMAN
== END 2018-01-03 16:09 | disposition home or self-care (01) ==
LOC: ED 13:30
DX: R79.89 Other specified abnormal findings of blood chemistry (principal); R53.1 Weakness
CPT/HCPCS: 71046; 80053; 81002; 82553; 83880; 84484; 85025; 85610; 93005; 99283; 99284; J1940; J7030; 36415; 96374; S1016

== ENCOUNTER 2018-01-05 06:59 | Emergency (ER) | payer SELFPAY ==
--- NOTE | 2018-01-05 08:10 | ED Physician Documentation ---
Dyspnea - HISTORIAN Historian: patient, spouse - HPI Stated Complaint: "I am having a little SOA, weak all over and have body aches" Chief Complaint: Dyspnea Additional Information: here 2 days ago "just dont feel good" tx chf inc lasix still same c/o no better. pt relates has been similar lsy since rec flu vaccine few weeks ago Duration: continues in ED Initiating Event: upper respiratory illness (has had cough [id number] robitussin helped slightly), exercise, other (uses 1 pillow - c-pap machine - no orthopnea - noct 1-occ 2 times -min ankle adema - pos hjr but mild). denies: out of meds Severity: moderate Exacerbated By: exertion, other (awakes freq up [place] [place] occ eats ) Associated Symptoms: chest discomfort (occasionally with dyspnea), anxiety, muscle spasms. denies: productive cough Further Comments: yes (pthere two days ago similar symptoms-no better) - ROS CONST: no problems EYES/ENT: denies: problems with vision, sore throat, nasal drainage, nasal congestion GI/: none NEURO/PSYCH: denies: headache MS/SKIN/LYMPH: none - PAST HX Lung Disease: none Cardiac Disease: CHF PE Risk Factors: hypertension Other History: diabetes Type 2 Immunizations: influenza (pt reports onset sy after flu vaccine) Allergies/Adverse Reactions: Allergies Allergy/AdvReac Type Severity Reaction Status Date / Time PORFIRIO Inhibitors AdvReac Cough Verified 01/05/18 07:44 Home Medications: Ambulatory Orders Medication Instructions Recorded Sacubitril/Valsartan [Entresto 49 1 each PO BID #60 tablet 08/15/16 mg-51 mg Tablet] Temazepam [Restoril] 15 mg PO HS #10 capsule 10/12/17 - SOCIAL HX Smoking History: non-smoker Alcohol Use: none Drug Use: none - FAMILY HX Family History: cardiac disease - VITAL SIGNS Vital Signs: Vital Signs Temp Pulse Resp BP Pulse Ox 99.1 F 96 H 16 123/95 96 01/05/18 07:10 01/05/18 07:10 01/05/18 07:10 01/05/18 07:10 01/05/18 07:10 - REVIEWED ASSESSMENTS Nursing Assessment Reviewed: Yes Vitals Reviewed: Yes ED Results Lab/Radiology - Orders Orders: ED Orders Category Date Time Status CBC/PLATELET/DIFF Routine Lab 01/05/18 Ordered CMP Routine Lab 01/05/18 Ordered NT-proBNP Stat Lab 01/05/18 Ordered TROPONIN I (cTnI) Stat Lab 01/05/18 Ordered EKG WITH COMPARISON Stat Ther 01/05/18 Ordered Dyspnea Physical Exam - EXAM General Appearance: mild distress EENT: eye inspection normal Neck: No: nml inspection (pos HJR) Respiratory: no resp. distress CVS: reg. rate & rhythm Abdomen: non-tender, no distention Skin: color nml, no rash. No: cyanosis, diaphoresis, pallor, ecchymosis Extremities: non-tender, normal range of motion, no evidence of injury, edema (very min) Neuro/Psych: oriented x3, motor nml, sensation nml, mood/affect nml Discharge Clincal Impression: CHF (congestive heart failure), congestive heart failure, uncontrolled diabetes, anxiety w/ insomnia, poss early renal failure Referrals: Casie Willson MD [Primary Care Provider] - 2 Days Comments: home see cardiologists very soon daily wts control diabetes trial of klonopin for sleep anxiety Condition: Good Disposition: 01 HOME, SELF-CARE Decision to Admit: NO Decision Time: 10:52
[2018-01-05 08:43] LABS: EOSINOPHILS % 1.6 % (0.0-6.8); MEAN CORPUSCULAR HEMOGLOBIN 29.1 pg (28.0-34.0)
[2018-01-05 08:44] LABS: BASOPHILS % 0.2 (0.0-1.5); NEUTROPHILS # 4.1 # k/uL (1.4-7.7)
[2018-01-05 09:10] LABS: eGFR (Non-African) 50
[2018-01-05 11:13] VITALS: BP 137/91
== END 2018-01-05 11:12 | disposition home or self-care (01) ==
LOC: ED 06:59
DX: E11.65 Type 2 diabetes mellitus with hyperglycemia (principal); I50.9 Heart failure, unspecified; G47.00 Insomnia, unspecified; I10 Essential (primary) hypertension; F41.9 Anxiety disorder, unspecified
CPT/HCPCS: 36415; 80053; 83880; 84484; 85025; 87400; 99283

== ENCOUNTER 2018-01-27 09:21 | Outpatient (CLI) | payer SELFPAY | END 2018-01-27 09:23 | LOC: LAB 09:21 | PROVIDERS: ATTEND Family Medicine | DX: E11.9 Type 2 diabetes mellitus without complications (principal) | CPT/HCPCS: 36415; 83036 ==

== ENCOUNTER 2018-02-05 13:06 | Emergency (ER) | payer SELFPAY ==
--- NOTE | 2018-02-05 13:09 | ED Physician Documentation ---
General Adult - HISTORIAN Historian: patient - HPI Stated Complaint: weakness Chief Complaint: Weakness Onset: days ago (5) Timing: still present Severity: moderate Further Comments: yes (He reports on 01.05.19 he was seen for what he was dx with Influenza B and he reports feeling that he improved from that dx. He states then approx 5 days ago he started to again feel weakness and fatigue. "I just dont feel like doing a thing" He states he has no appetie and he denies any pain complaints. Mild nausea - no vomiting or diarrhea. No urinary complaints. His blood sugars and blood pressure "always run high") Last known Well Code/Unknown Code: Unknown - ROS CONST: recent illness, weakness EYES/ENT: none CVS/RESP: none GI/: nausea. denies: abdominal pain, problems urinating, vomiting, diarrhea MS/SKIN/LYMPH: none NEURO/PSYCH: denies: headache, fainting, dizziness, tingling, numbness, difficulty walking, difficulty with speech, anxiety, depression - PAST HX Past History: CHF, hypertension Other History: diabetes Type 2 Immunizations: UTD Allergies/Adverse Reactions: Allergies Allergy/AdvReac Type Severity Reaction Status Date / Time PORFIRIO Inhibitors AdvReac Cough Verified 02/05/18 13:19 Home Medications: Ambulatory Orders Medication Instructions Recorded Sacubitril/Valsartan [Entresto 49 1 each PO BID #60 tablet 08/15/16 mg-51 mg Tablet] - SOCIAL HX Smoking History: non-smoker Alcohol Use: none Drug Use: none - FAMILY HX Family History: No - VITAL SIGNS Vital Signs: Vital Signs Temp Pulse Resp BP Pulse Ox 137/91 01/05/18 11:12 - REVIEWED ASSESSMENTS Nursing Assessment Reviewed: Yes Vitals Reviewed: Yes Progress - Progress Progress: 1510: discussed results with Dr Willson and pt/spouse he is agreeable to plan although he is upset feeling this way and no treatment. DG General Adult Physical Exam - PHYSICAL EXAM GENERAL APPEARANCE: no distress EENT: eye inspection normal, ENT inspection normal, no signs of dehydration NECK: normal inspection RESPIRATORY: no resp distress, chest non-tender, breath sounds normal CVS: reg rate & rhythm, heart sounds normal, equal pulses, no murmur ABDOMEN: soft, no distension SKIN: warm/dry, normal color EXTREMITIES: non-tender, normal range of motion, no evidence of injury, no edema NEURO: oriented X3 Discharge Clincal Impression: Weakness Referrals: Casie Willson MD [Primary Care Provider] - 2 Days Comments: 1. Follow up with Dr Willson 2. Small frequent meals - push protein 3. Increase fluids 4. Return to ER if any concerns Condition: Stable Decision to Admit: NO Date of Decison to Admit: 02/05/18 Decision Time: 15:16
[2018-02-05] MEDS: 0.9 % SODIUM CHLORIDE 1,000 ML IV ONE (14:02)
[2018-02-05 14:04] LABS: BASOPHILS % 0.5 (0.0-1.5); EOSINOPHILS % 1.9 % (0.0-6.8); MEAN CORPUSCULAR HEMOGLOBIN 28.8 pg (28.0-34.0); MONOCYTES % 6.1 % (0.0-11.0); NEUTROPHILS # 3.8 # k/uL (1.4-7.7)
[2018-02-05 14:23] LABS: eGFR (Non-African) > 60
[2018-02-05 15:22] VITALS: BP 140/92
[2018-02-05 15:32] LABS: APPEARANCE,URINE CLEAR (CLEAR); COLOR,URINE YELLOW (YELLOW); OCCULT BLOOD,URINE NEGATIVE (NEGATIVE); PH URINE 7.5 (5.0 - 8.0); UROBILINOGEN URINE 0.2 Eu (0.2-1.0)
== END 2018-02-05 15:20 | disposition home or self-care (01) ==
LOC: ED 13:06
DX: R53.1 Weakness (principal)
CPT/HCPCS: 36415; 80053; 81002; 83880; 84484; 85025; 87400; 93005; 96365; 99282; 99284; J7030; S1016

== ENCOUNTER 2018-04-07 10:48 | Outpatient (CLI) | payer OTHER ==
[2018-04-07 11:50] LABS: eGFR (Non-African) > 60
--- NOTE | 2018-04-07 15:03 | Diagnostic Imaging Report ---
MANE LOMBARDI [facility] [address] [facility] [address] Report Submission Date: Apr 07, 2018 3:00:04 PM COOKER HELPER Patient Study Name: RAYNA TAMEZ Date: Apr 07, 2018 11:21:12 AM COOKER HELPER Modality Type: DX Gender: M Description: CHEST 2VIEW : 53 Institution: [facility] Physician: MANE LOMBARDI CHEST 2VIEW HISTORY: COUGH, NOT FEELING GOOD X 1 WEEK. FINDINGS: PA and lateral chest x-ray demonstrates right lower lobe infiltrate to be present. The remainder of the lungs are clear and fully expanded. Cardiac silhouette and bony thorax are unremarkable. IMPRESSION: Right lower lobe infiltrate. Electronically signed on Apr 07, 2018 3:00:04 PM COOKER HELPER by: Ramez HALLMAN
== END 2018-04-07 10:50 ==
LOC: LAB 10:48
PROVIDERS: ATTEND Family Medicine
DX: I25.10 Atherosclerotic heart disease of native coronary artery without angina pectoris (principal); R06.02 Shortness of breath; R91.8 Other nonspecific abnormal finding of lung field
CPT/HCPCS: 36415; 71046; 80053

== ENCOUNTER 2018-04-14 11:42 | Inpatient (IN) | payer OTHER ==
[2018-04-14 12:15] VITALS: BMI 29.8
[2018-04-14] MEDS ORDERED: ZOLPIDEM TARTRATE 5 MG TABLET PO PRN (12:46)
[2018-04-14] MEDS ORDERED: clonazePAM 0.5 MG TABLET PO PRN (13:00)
--- NOTE | 2018-04-14 13:04 | History and Physical Report ---
History of Present Illnes - History of Present Illness Reason for Visit: dyspnea History of Present Illness: 62yo male who was dx with pneumonia and was started on Levaquin last week. Breathing got some better then got worse again. Patient stated he is redeveloped a cough that has been clear to green in nature. Patient is having some shortness of breath and dyspnea with exertion. Appetite has been diminished. Patient denies any fever or chills that he is aware of at this time. Patient denies any chest pain. Patient was seen in the office today with and SaO2 of 88% on room air. Patient also stated he is been having some difficulties with swallowing. Patient stated he had to chew his food for long period of time although denies it is having any hangup of the food in his esophagus. Patient stated he did take a PPI yesterday and it did seem to help with the symptoms. Has been wheezing some. 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 negative: Fever Eyes: negative: pain, vision change ENT: Other (decrease hearing acuity). negative: Ear Pain, Ear Discharge, Nose Pain, Nose Discharge, Nose Congestion, Mouth Pain, Mouth Swelling Respiratory: Cough, Shortness of Breath, SOB with Excertion, Sputum (greeen), Wheezing. negative: Hemoptysis, Pleuritic Pain Cardiovascular: negative: Chest Pain, Palpitations, Orthopnea, Edema Gastrointestinal: negative: Nausea, Vomiting, Abdominal Pain, Diarrhea, Constipation, Melena, Hematochezia Genitourinary: negative: Dysuria, Frequency, Incontinence, Hematuria Musculoskeletal: Back Pain. negative: Neck Pain Skin: negative: Rash Neurological: Weakness (generalized). negative: Numbness, Incoordination, Change in Speech, Confusion - Medications/Allergies Allergies/Adverse Reactions: Allergies Allergy/AdvReac Type Severity Reaction Status Date / Time No Known Drug Allergies Allergy Verified 04/20/18 12:27 PORFIRIO Inhibitors AdvReac Cough Verified 04/20/18 12:27 Current Inpatient Medications: Current Inpatient Medications Carvedilol (Coreg) 25 mg PO BID [facility] Citalopram Hydrobromide (Celexa) 10 mg PO DAILY [facility] Clonazepam (Klonopin) 0.5 mg PO hs prn insomnia [facility] Furosemide (Lasix) 80 mg PO DAILY [facility] Glipizide (Glucotrol) [address] [place] [address] [facility] Insulin Human Regular (Humulin R) 0 - 12 unit SQ CHEMQID [facility]; Protocol Metformin HCl (Glucophage) 1,[place] [address] [facility] Miscellaneous (Patient Own Med) 1 each OP BID [facility] Zolpidem Tartrate (Ambien) 5 mg PO HS PRN PRN Reason: Insomnia Exam - Exam Vital Signs: Vital Signs (72 hours) 04/14/18 12:01 Temperature 97.8 F Pulse Rate [ 104 H Left Pulse ox] Pulse Rate [ 104 H Right Pulse ox] Respiratory 18 Rate Blood Pressure 133/86 [Left Arm] O2 Sat by Pulse 97 Oximetry General: Alert, Oriented to Person, Oriented to Place, Oriented to Time, Cooperative, Mild distress HEENT: Atraumatic, PERRLA, EOMI, Mouth Mucous membr. moist/[place], Nose Mucous membr. moist/[place], Edentulous. No: Abnormal Pupil Neck: Normal Range of Motion Lungs: Normal air movement, Speaks full Sentences, Respiratory Distress (mild), Wheezes, Rales (RLL) Cardiovascular: Regular rate, Normal S1, Normal S2, No murmurs Abdomen: Normal bowel sounds, Soft, No tenderness, No hepatospenomegaly, No masses Integumentary: Normal, [place], Warm, Dry Extremities: No clubbing, No cyanosis, No edema, Normal pulses, No tenderness/swelling Neurological: Normal gait, Normal speech, Strength Equal Bilat, Normal tone, Sensation intact, Cranial nerves 3-12 NL, Reflexes 2+ Psych/Mental Status: Mental status NL, Mood NL, Appropriate Affect, Intact Judgment Assessment/Plan - Assessment/Plan (1) Pneumonia Status: Acute Qualifiers: Pneumonia type: due to unspecified organism Laterality: right Lung location: lower lobe of lung Qualified Code(s): J18.1 - Lobar pneumonia, unspecified organism Assessment: Will start Zosyn, duoneb treatmnt. support with supplemental oxygen therapy (2) CHF (congestive heart failure) Status: Chronic Assessment: IV lasix, monitor weight (3) Cardiomyopathy Status: Chronic Qualifiers: Cardiomyopathy type: ischemic Qualified Code(s): I25.5 - Ischemic cardiomyopathy Assessment: conitraul [facility] home meds (4) Chronic renal disease Status: Chronic Qualifiers: Chronic kidney disease stage: stage 3 (moderate) Qualified Code(s): N18.3 - Chronic kidney disease, stage 3 (moderate) Assessment: stable (5) Diabetes mellitus Status: Chronic Qualifiers: Diabetes mellitus type: type 2 Diabetes mellitus fci insulin use: without fci use Diabetes mellitus complication status: without complication Qualified Code(s): E11.9 - Type 2 diabetes mellitus without complications Assessment: Will monitor BS, patient placed on sliding scale insulin (6) Hypertension Status: Chronic Qualifiers: Hypertension type: essential hypertension Qualified Code(s): I10 - Essential (primary) hypertension Assessment: continue with home meds (7) BOWEN (obstructive sleep apnea) Status: Chronic Assessment: continue with C-PAP (8) Gout Status: Chronic Qualifiers: Gout site: unspecified site Presence of tophus: without tophus Assessment: stable VTE Assessment - RISK FACTOR SCORE VTE RISK FACTOR SCORES: AGE OVER 60 YEARS, ANTICIPATED BED CONFINEMENT OR IMMOBILIZATION > 24 HOURS, CONGESTIVE HEART FAILURE OR MYOCARDIAL INFARCTION - RISK VTE HIGH RISK: SCORE OF 3-4 (RISK PROXIMAL DVT 4-8%) PROPHYLAXIS NEEDED
[2018-04-14 13:35] LABS: EOSINOPHILS % 1.4 % (0.0-6.8); MEAN CORPUSCULAR HEMOGLOBIN 29.7 pg (28.0-34.0); MONOCYTES % 7.4 % (0.0-11.0)
[2018-04-14 13:36] LABS: BASOPHILS % 0.5 (0.0-1.5); NEUTROPHILS # 3.2 # k/uL (1.4-7.7)
[2018-04-14 14:00] LABS: eGFR (Non-African) > 60
--- NOTE | 2018-04-14 14:44 | Diagnostic Imaging Report ---
MANE LOMBARDI [facility] [address] [facility] [address] [address] Report Submission Date: Apr 14, 2018 2:41:32 PM ORAL AND MAXILLOFACIAL SURGERY RESIDENT Patient Study Name: RAYNA TAMEZ Date: Apr 14, 2018 1:04:34 PM ORAL AND MAXILLOFACIAL SURGERY RESIDENT Modality Type: DX Gender: M Description: CHEST 2VIEW : 53 Institution: [facility] Physician: MANE LOMBARDI HISTORY: 62-year-old male with cough, shortness of breath, follow up COMPARISON: Chest x-ray dated 04/07/2018 TECHNIQUE: 2 views of the chest were performed. FINDINGS: There are infiltrates in the right middle and lower lobes, stable since the previous chest x-ray. There is mild prominence of the central interstitial markings. There is thickening of the right horizontal fissure. No pneumothorax. The heart is enlarged. The aortic arch is calcific. IMPRESSION: 1. Stable right basilar infiltrate. Consider follow-up CT scan of the chest if this infiltrate persists radiographically. 2. Cardiomegaly and prominence of the interstitial markings likely reflecting mild CHF. Electronically signed on Apr 14, 2018 2:41:32 PM ORAL AND MAXILLOFACIAL SURGERY RESIDENT by: Jim HALLMAN
[2018-04-14] MEDS: INSULIN REGULAR, HUMAN 100 UNIT/ML 3ML VIAL SQ SCH ×2 (16:46→21:55)
[2018-04-14] MEDS: IPRATROPIUM/ALBUTEROL SULFATE 3 ML AMPUL.NEB NEB SCH ×2 (17:10→21:07)
[2018-04-14] MEDS ORDERED: PIPERACILLIN SODIUM/TAZOBACTAM 3.375 GM VIAL IV ONE ×2 (18:11→19:31)
[2018-04-14] MEDS ORDERED: 0.9 % SODIUM CHLORIDE(MINIBAG+ 50 ML IV ONE (18:11)
[2018-04-14] MEDS: PIPERACILLIN SODIUM/TAZOBACTAM 3.375 GM in 0.9 % SODIUM CHLORIDE(MINIBAG+ 100 ML IV SCH ×2 (18:22→21:38)
[2018-04-14] MEDS ORDERED: 0.9 % SODIUM CHLORIDE(MINIBAG+ 100 ML IV ONE (19:31)
[2018-04-14] MEDS: FUROSEMIDE 40 MG/4 ML VIAL IVP SCH (21:00)
[2018-04-14] MEDS: L. ACIDOPHILUS/LACTOBAC SPOR 1 EACH CAP PEG SCH (21:29)
[2018-04-14] MEDS: CARVEDILOL 12.5 MG TABLET PO SCH (21:29)
[2018-04-14] MEDS: PATIENT OWN MED 1 EACH EACH PO SCH (23:22)
[2018-04-14] MEDS ORDERED: KETOROLAC TROMETHAMINE 30 MG/1ML VIAL ONE (23:51)
[2018-04-15] MEDS ORDERED: KETOROLAC TROMETHAMINE 30 MG/1ML VIAL IVP PRN (00:06)
[2018-04-15] MEDS: IPRATROPIUM/ALBUTEROL SULFATE 3 ML AMPUL.NEB NEB SCH ×6 (02:36→21:55)
[2018-04-15] MEDS ORDERED: 0.9 % SODIUM CHLORIDE(MINIBAG+ 50 ML IV ONE (06:21)
[2018-04-15] MEDS ORDERED: PIPERACILLIN SODIUM/TAZOBACTAM 3.375 GM VIAL IV ONE (06:21)
[2018-04-15] MEDS: PIPERACILLIN SODIUM/TAZOBACTAM 3.375 GM in 0.9 % SODIUM CHLORIDE(MINIBAG+ 100 ML IV SCH ×3 (06:42→18:12)
[2018-04-15] MEDS ORDERED: CALCIUM CARB 500 MG TAB.CHEW PO PRN (07:24)
[2018-04-15] MEDS: INSULIN REGULAR, HUMAN 100 UNIT/ML 3ML VIAL SQ SCH ×4 (07:47→21:01)
[2018-04-15] MEDS ORDERED: FUROSEMIDE 40 MG TABLET PO SCH (09:00)
[2018-04-15] MEDS: CARVEDILOL 12.5 MG TABLET PO SCH ×2 (09:15→20:51)
[2018-04-15] MEDS: CITALOPRAM HYDROBROMIDE 20 MG TABLET PO SCH (09:15)
[2018-04-15] MEDS: ENOXAPARIN SODIUM 30 MG/0.3 ML DISP.SYRIN SQ SCH (09:16)
[2018-04-15] MEDS: L. ACIDOPHILUS/LACTOBAC SPOR 1 EACH CAP PEG SCH ×2 (09:16→20:50)
[2018-04-15] MEDS: FUROSEMIDE 40 MG/4 ML VIAL IVP SCH ×2 (10:15→19:44)
[2018-04-15] MEDS: PATIENT OWN MED 1 EACH EACH PO SCH ×2 (10:36→20:52)
[2018-04-16] MEDS: PIPERACILLIN SODIUM/TAZOBACTAM 3.375 GM in 0.9 % SODIUM CHLORIDE(MINIBAG+ 100 ML IV SCH ×4 (01:00→17:05)
[2018-04-16] MEDS: IPRATROPIUM/ALBUTEROL SULFATE 3 ML AMPUL.NEB NEB SCH ×5 (03:56→17:16)
[2018-04-16] MEDS: INSULIN REGULAR, HUMAN 100 UNIT/ML 3ML VIAL SQ SCH ×3 (07:57→17:00)
--- NOTE | 2018-04-16 08:19 | Discharge Summary ---
Discharge Summary - Discharge Sumary History of Present Illness: 62yo male who was dx with pneumonia and was started on Levaquin last week. Breathing got some better then got worse again. Patient stated he is redeveloped a cough that has been clear to green in nature. Patient is having some shortness of breath and dyspnea with exertion. Appetite has been diminished. Patient denies any fever or chills that he is aware of at this time. Patient denies any chest pain. Patient was seen in the office today with and SaO2 of 88% on room air. Patient also stated he is been having some difficulties with swallowing. Patient stated he had to chew his food for long period of time although denies it is having any hangup of the food in his esophagus. Patient stated he did take a PPI yesterday and it did seem to help with the symptoms. Has been wheezing some. Condition at Discharge: Stable Home Medications: Ambulatory Orders Medication Instructions Recorded Amoxicillin/Potassium Clav 1 each PO BID #10 tablet 04/16/18 [Augmentin 875Mg/125Mg] Consultations this Visit: None Procedures this Visit: None Allergies/Adverse Reactions: Allergies Allergy/AdvReac Type Severity Reaction Status Date / Time No Known Drug Allergies Allergy Verified 04/20/18 12:27 PORFIRIO Inhibitors AdvReac Cough Verified 04/20/18 12:27 Discharge Summary: Patient was admitted to the hospital and started on thousand 3.375 g IV Q6 hours. Patient was also started on DuoNeb every four hours. Patient was started on supplemental oxygen when his SaO2 drop below 92%. Over the first 24 hours patient stated that is breathing did seem to improve although he continued to not feel well. Patient stated he was still continue to have some difficulties with swallowing. Patient CBC remain stable. Patient CMP was stable other than elevated blood sugars in the lower 200 range. Patient did have some troponin levels done on the day of discharge related to some chest discomfort that he was having. These were within normal range. Patient did have a BMP which was elevated at 2942 although I was not sure of what his baseline was. Patient continues to describe having some difficulties with swallowing. Patient states he felt like he needed to continue to chew his food was having some difficulty in swallowing. Patient denies any choking. A speech therapy consult patient was obtained and they felt that the patient swallowing mechanism was fairly normal. Since patient pulmonary status was improving and no other specific abnormalities could be found patient was discharged to be followed up on an outpatient basis. Patient was discharged in stable condition. Admit : 2018 Level of Care: Acute Discharge: 16 APR 2018 Disposition: Home - Final Diagnosis (1) Pneumonia Problems: stable to improved (2) CHF (congestive heart failure) Problems: stable, no evidence of decompensation on CXR (3) Cardiomyopathy Problems: stable (4) Chronic renal disease Problems: Kidney funtions are a little worse, possibly related to prerenal causes. (5) Diabetes mellitus Problems: stable BS in the mid 100 range (6) Hypertension Problems: stable (7) BOWEN (obstructive sleep apnea) Problems: Patient encouraged to use CPAP (8) Gout Problems: stable on home meds
--- NOTE | 2018-04-16 08:21 | Inpatient Progress Note ---
Subjective - Required Recertification Statement I anticipate X number of days because-include discharge plan: 1 day - Review of Systems Events since last encounter: Patient states that his breathing does seem to be doing some better today. Patient continues to have a cough and some shortness of breath dyspnea. Patient has been able to maintain as SaO2 and a reasonable level. Patient however continued to complain that he is not able to swallow well. Patient denies any choking on food. Patient also continue to have a sense of not feeling well with no specific symptoms. Patient denies any chest pain or chest pressure. Patient is not had any nausea vomiting or diarrhea. General: Denies: Chills, Night Sweats HEENT: Denies: Head Aches Pulmonary: Dyspnea, Cough. Denies: Pleuritic Chest Pain Cardiovascular: Denies: Chest Pain, Palpitations, Orthopnea, Paroxysmal Noc. Dyspnea Gastrointestinal: Denies: Nausea, Vomiting, Abdominal Pain, Diarrhea, Cons tipation, Melena, Hematochezia Genitourinary: Denies: Frequency Neurological: Weakness. Denies: Numbness, Incoordination Objective - Exam Vitals and I&O: Vital Signs Temp 97.2 F L 04/16/18 05:49 Pulse 91 H 04/16/18 05:49 Resp 16 04/16/18 05:49 BP 116/72 04/16/18 05:49 Pulse Ox 99 04/16/18 05:49 Intake & Output 04/15/18 04/15/18 04/16/18 11:59 23:59 11:59 Intake Total 360 440 Output Total 7001 627 9027 Balance -1590 190 -1300 Weight 95.708 kg Intake: Oral 360 440 Output: Urine 3787 520 7085 Other: Voiding Method Toilet Toilet Toilet # Voids 4 4 # Bowel Movements 0 General: Alert, Oriented to Person, Oriented to Place, Oriented to Time, Cooperative, No acute distress HEENT: Atraumatic Neck: Supple, No JVD Lungs: Normal air movement, Speaks full Sentences, Wheezes (with forced expiration), Rhonchi (few in the right posterior base) Cardiovascular: Regular rate, Normal S1, Normal S2, No murmurs Abdomen: Normal bowel sounds, Soft, No tenderness Extremities: No clubbing, No cyanosis, No edema Skin: Normal, Warm, Dry Neurological: Normal gait Psych/Mental Status: Mental status NL, Mood NL (? depressed), Appropriate Affect, Intact Judgment - Results Results: Laboratory Results WBC 4.60 K/ul (4.00-12.00) 04/14/18 12:25 RBC 4.67 M/ul (3.90-5.20) 04/14/18 12:25 Hgb 13.9 g/dL (12.0-18.0) 04/14/18 12:25 Hct 42.8 % (37.0-53.0) 04/14/18 12:25 MCV 92.0 fl (80.0-100.0) 04/14/18 12:25 MCH 29.7 pg (28.0-34.0) 04/14/18 12:25 MCHC 32.4 g/dL (30.0-36.0) 04/14/18 12:25 RDW 15.1 % (11.3-14.3) H 04/14/18 12:25 Plt Count 267 K/mm3 (130-400) 04/14/18 12:25 Neut % (Auto) 69.7 % (39.0-79.0) 04/14/18 12:25 Lymph % (Auto) 21.0 % (16.0-50.0) 04/14/18 12:25 [place] % (Auto) 7.4 % (0.0-11.0) 04/14/18 12:25 Eos % (Auto) 1.4 % (0.0-6.8) 04/14/18 12:25 Baso % (Auto) 0.5 (0.0-1.5) 04/14/18 12:25 Neut # (Auto) 3.2 # k/uL (1.4-7.7) 04/14/18 12:25 Lymph # (Auto) 1.0 # k/uL (0.6-4.0) 04/14/18 12:25 [place] # (Auto) 0.3 # k/uL (0.0-0.9) 04/14/18 12:25 Eos # (Auto) 0.1 # k/uL (0.0-0.6) 04/14/18 12:25 Baso # (Auto) 0.0 # k/uL (0.0-0.5) 04/14/18 12:25 Sodium 142 mmol/L (136-145) 04/14/18 12:25 Potassium 3.8 mmol/L (3.5-5.1) 04/14/18 12:25 Chloride 103 mmol/L (98-107) 04/14/18 12:25 Carbon Dioxide 30 mmol/L (22-30) 04/14/18 12:25 BUN 23 mg/dL (9-20) H 04/14/18 12:25 Creatinine 1.25 mg/dL (0.66-1.25) 04/14/18 12:25 Estimated Creat Clear 80 04/14/18 12:25 Est GFR ( Amer) > 60 (60-) 04/14/18 12:25 Est GFR (Non-Af Amer) > 60 (60-) 04/14/18 12:25 Glucose 223 mg/dL (74-106) H 04/14/18 12:25 Calcium 8.4 mg/dL (8.4-10.2) 04/14/18 12:25 Total Bilirubin 1.1 mg/dL (0.2-1.3) 04/14/18 12:25 AST 26 U/L (15-46) 04/14/18 12:25 ALT 28 U/L (13-69) 04/14/18 12:25 Alkaline Phosphatase 64 U/L (38-126) 04/14/18 12:25 NT-Pro-B Natriuret Pep 2942.3 pg/mL (15.0-125.0) H 04/14/18 12:25 Total Protein 5.7 g/dL (6.3-8.2) L 04/14/18 12:25 Albumin 3.4 g/dL (3.5-5.0) L 04/14/18 12:25 Assessment/Plan - Assessment/Plan (1) Pneumonia Status: Acute Qualifiers: Pneumonia type: due to unspecified organism Laterality: right Lung location: lower lobe of lung Qualified Code(s): J18.1 - Lobar pneumonia, unspecified organism (2) CHF (congestive heart failure) Status: Chronic (3) Cardiomyopathy Status: Chronic Qualifiers: Cardiomyopathy type: ischemic Qualified Code(s): I25.5 - Ischemic cardiomyopathy (4) Chronic renal disease Status: Chronic Qualifiers: Chronic kidney disease stage: stage 3 (moderate) Qualified Code(s): N18.3 - Chronic kidney disease, stage 3 (moderate) (5) Diabetes mellitus Status: Chronic Qualifiers: Diabetes mellitus type: type 2 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
[2018-04-16] MEDS: L. ACIDOPHILUS/LACTOBAC SPOR 1 EACH CAP PEG SCH (09:00)
[2018-04-16] MEDS: CARVEDILOL 12.5 MG TABLET PO SCH (09:00)
[2018-04-16] MEDS: CITALOPRAM HYDROBROMIDE 20 MG TABLET PO SCH (09:00)
[2018-04-16] MEDS: PATIENT OWN MED 1 EACH EACH PO SCH (09:03)
[2018-04-16] MEDS: ENOXAPARIN SODIUM 30 MG/0.3 ML DISP.SYRIN SQ SCH (09:03)
[2018-04-16] MEDS: FUROSEMIDE 40 MG/4 ML VIAL IVP SCH (11:04)
[2018-04-16 11:11] LABS: BASOPHILS % 0.3 (0.0-1.5); EOSINOPHILS % 2.3 % (0.0-6.8); MEAN CORPUSCULAR HEMOGLOBIN 29.7 pg (28.0-34.0); MONOCYTES % 5.7 % (0.0-11.0); NEUTROPHILS # 3.5 # k/uL (1.4-7.7)
[2018-04-16 11:34] LABS: eGFR (Non-African) 53
--- NOTE | 2018-04-16 17:01 | Diagnostic Imaging Report ---
MANE LOMBARDI [facility] [address] [facility].[address] [address] Report Submission Date: Apr 16, 2018 4:35:05 PM SEED ANALYSIS LABORATORY ASSISTANT Patient Study Name: RAYNA TAMEZ Date: Apr 16, 2018 3:55:20 PM SEED ANALYSIS LABORATORY ASSISTANT Modality Type: DX Gender: M Description: CHEST 2VIEW : 53 Institution: [facility] Physician: MANE LOMBARDI CHEST 2VIEW CLINICAL HISTORY: follow up to CXR x's 2 days ago COMPARISON: 04/14/2018 FINDINGS/IMPRESSION: Diffuse bilateral interstitial opacities which may represent pulmonary edema and/or pneumonia are unchanged. Superimposed mass-like consolidation in the right perihilar region is unchanged. CT of the chest with contrast may be helpful to exclude an underlying mass. There is no pleural effusion or pneumothorax. The cardiac silhouette remains enlarged. Electronically signed on Apr 16, 2018 4:35:05 PM SEED ANALYSIS LABORATORY ASSISTANT by: Guille HALLMAN
[2018-04-16 18:21] VITALS: BP 117/73
== END 2018-04-16 18:00 | disposition home or self-care (01) | DRG 195 ==
LOC: SOUTH 11:42
PROVIDERS: ADMIT Family Medicine; ATTEND Family Medicine
DX: J18.1 Lobar pneumonia, unspecified organism (principal); E11.22 Type 2 diabetes mellitus with diabetic chronic kidney disease; I12.9 Hypertensive chronic kidney disease with stage 1 through stage 4 chronic kidney disease, or unspecified chronic kidney disease; N18.2 Chronic kidney disease, stage 2 (mild); I50.9 Heart failure, unspecified; I25.5 Ischemic cardiomyopathy; G47.33 Obstructive sleep apnea (adult) (pediatric); R13.10 Dysphagia, unspecified; M10.9 Gout, unspecified; Z79.4 Long term (current) use of insulin
CPT/HCPCS: 36415; 71046; 80053; 82306; 83880; 84484; 85025; 87040; 94640; 94760; 99222; 99231; 99238; J1650; J1885; J1940; J1815; J2543; S1016

== ENCOUNTER 2018-04-20 11:57 | Emergency (ER) | payer OTHER ==
[2018-04-20] MEDS ORDERED: IPRATROPIUM/ALBUTEROL SULFATE 3 ML AMPUL.NEB NEB ONE (12:15)
--- NOTE | 2018-04-20 12:21 | ED Physician Documentation ---
Dyspnea - HISTORIAN Historian: patient - HPI Stated Complaint: shortness of breath Chief Complaint: Dyspnea Additional Information: Patient presents to ED with increasing shortness of breath over the past 24 hours. Patient was discharged from the hospital on where he was hospitalized for pneumonia for 3 days. He was discharged on Apr 16. Patient has a history of ischemic cardiomyopathy (lvef 20%), BOWEN (treated with cpap), DM2 and hypertension. Onset: hours (24) Duration: continues in ED Initiating Event: upper respiratory illness Severity: moderate Exacerbated By: laying flat Associated Symptoms: denies: fever, chest pain, productive cough - ROS CONST: recent illness EYES/ENT: none GI/: none NEURO/PSYCH: denies: headache MS/SKIN/LYMPH: none - PAST HX Lung Disease: none Cardiac Disease: CHF, CAD PE Risk Factors: hypertension Surgeries/Procedures: none Other History: none, diabetes Type 2 Allergies/Adverse Reactions: Allergies Allergy/AdvReac Type Severity Reaction Status Date / Time No Known Drug Allergies Allergy Verified 04/20/18 12:27 PORFIRIO Inhibitors AdvReac Cough Verified 04/20/18 12:27 Home Medications: Ambulatory Orders Medication Instructions Recorded Amoxicillin/Potassium Clav 1 each PO BID #10 tablet 04/16/18 [Augmentin 875Mg/125Mg] - SOCIAL HX Smoking History: non-smoker Alcohol Use: none Drug Use: none - FAMILY HX Family History: none - VITAL SIGNS Vital Signs: Vital Signs Temp Pulse Resp BP Pulse Ox 117/73 04/16/18 18:00 - REVIEWED ASSESSMENTS Nursing Assessment Reviewed: Yes Vitals Reviewed: Yes Progress - Progress Progress: 1333 Patient's blood pressure improved after hydralazine 10mg IV, 150/96. Patient's account planner is Dr. Ramos [facility]. 1447 Called [facility] for transfer. Waiting for Dr. Ojeda to return call. 1455 Dr. Ojeda refused admission, states patient needs to go to cardiology for admission. [address] Wiggins, Cardiology, at [facility]. He will accept [facility] for transfer. - EKG/XRAY/CT Comments: sinus tachycardia 102 bpm ED Results Lab/Radiology - Radiology Radiology Impressions: Report Submission Date: Apr 20, 2018 12:55:15 PM REEL WINDER Patient Study Name: RAYNA TAMEZ Date: Apr 20, 2018 12:15:56 PM REEL WINDER Modality Type: DX Gender: M Description: CHEST 2VIEW : 53 Institution: [facility] Physician: PATIENCE SUN PA and lateral chest Clinical history: Sudden onset of shortness of breath. Findings: Examination of the chest in PA and lateral views with comparison to examination of 04/16/2018 demonstrates persistent opacities scattered throughout both lungs. There is consolidative change in the right perihilar region and right lower lobe that is stable. Consider CT scan for better evaluation if not already performed. Impression: 1. No significant change. Electronically signed on Apr 20, 2018 12:55:15 PM REEL WINDER by: Earle Andrade - Orders Orders: ED Orders Category Date Time Status Place IV Lock 1T Care 04/20/18 12:07 Active CHEST 2VIEW [RAD] Stat Exams 04/20/18 Ordered BLOOD CULTURE Stat Lab 04/20/18 Ordered CBC/PLATELET/DIFF Routine Lab 04/20/18 Ordered CMP Routine Lab 04/20/18 Ordered NT-proBNP Stat Lab 04/20/18 Ordered TROPONIN T (Kiana) Stat Lab 04/20/18 Ordered Ipratropium/Albuterol Sulfate [Duoneb] Med 04/20/18 12:15 Once 3 ml NEB NOW ONE Oxygen Daily Oxygen 04/20/18 12:15 Ordered EKG WITH COMPARISON Stat Ther 04/20/18 Ordered Dyspnea Physical Exam - EXAM General Appearance: no acute distress, alert EENT: QUINTON Neck: No: lymphadenopathy Respiratory: no resp. distress, decreased air movement, rhonchi (scattered on right) CVS: reg. rate & rhythm Abdomen: non-tender, no ascites. No: tenderness Skin: no rash. No: cyanosis Extremities: no edema Neuro/Psych: oriented x3 Discharge Clincal Impression: Elevated troponin, Vitamin D deficiency, Pleural effusion, bilateral Acute on chronic heart failure Qualifiers: Heart failure type: unspecified Qualified Code(s): I50.9 - Heart failure, unspecified Bilateral pneumonia Qualifiers: Pneumonia type: due to unspecified organism Lung location: unspecified part of lung Qualified Code(s): J18.9 - Pneumonia, unspecified organism Referrals: Casie Willson MD [Primary Care Provider] - 2 Days Additional Instructions: 1. Take Vitamin D 2,000 IU daily Condition: Stable Disposition: [facility] Decision to Admit: [id number] Date of Decison to Admit: 04/20/18 Decision Time: 15:06
[2018-04-20 12:45] LABS: BASOPHILS % 0.6 (0.0-1.5); EOSINOPHILS % 1.4 % (0.0-6.8); MEAN CORPUSCULAR HEMOGLOBIN 29.5 pg (28.0-34.0); MONOCYTES % 4.6 % (0.0-11.0); NEUTROPHILS # 5.6 # k/uL (1.4-7.7)
[2018-04-20 12:47] LABS: eGFR (Non-African) 55
[2018-04-20] MEDS ORDERED: hydrALAZINE HCL 20 MG/1 ML IVP ONE ×2 (12:54→14:30)
[2018-04-20] MEDS ORDERED: LEVOFLOXACIN 500 MG/100 ML BAG IV ONE (12:55)
[2018-04-20] MEDS ORDERED: VANCOMYCIN HCL 1 GM in 0.9 % SODIUM CHLORIDE 500 ML IV ONE (12:55)
[2018-04-20] MEDS ORDERED: methylPREDNISolone SOD SUCC 125 MG/2 ML VIAL IVP ONE (12:56)
--- NOTE | 2018-04-20 14:05 | Diagnostic Imaging Report ---
PATIENCE SUN [facility] [address] [facility] [address] [place], [place]. [address] Report Submission Date: Apr 20, 2018 12:55:15 PM QUITLINE COUNSELOR Patient Study Name: RAYNA TAMEZ Date: Apr 20, 2018 12:15:56 PM QUITLINE COUNSELOR Modality Type: DX Gender: M Description: CHEST 2VIEW : 53 Institution: [facility] Physician: PATIENCE SUN PA and lateral chest Clinical history: Sudden onset of shortness of breath. Findings: Examination of the chest in PA and lateral views with comparison to examination of 04/16/2018 demonstrates persistent opacities scattered throughout both lungs. There is consolidative change in the right perihilar region and right lower lobe that is stable. Consider CT scan for better evaluation if not already performed. Impression: 1. No significant change. Electronically signed on Apr 20, 2018 12:55:15 PM QUITLINE COUNSELOR by: Earle HALLMAN
[2018-04-20] MEDS ORDERED: CARVEDILOL 12.5 MG TABLET PO ONE (14:30)
--- NOTE | 2018-04-20 15:03 | Diagnostic Imaging Report ---
PATIENCE SUN [facility] [address] [facility] [address] [place], [place]. [address] Report Submission Date: Apr 20, 2018 2:28:20 PM THERMOSCREW OPERATOR Patient Study Name: RAYNA TAMEZ Date: Apr 20, 2018 1:49:23 PM THERMOSCREW OPERATOR Modality Type: CT Gender: M Description: CT CHEST W/O CONTRAST : 53 Institution: [facility] Physician: PATIENCE SUN EXAMINATION: CT CHEST W/O CONTRAST HISTORY: ABNORMAL CHEST XRAY TODAY. WITHOUT CONTRAST PER ORDER. (Hx) / ITS.REASON persistent right hilar pneumonia (DICOM Hx) TECHNIQUE: CT of the chest was performed without contrast according to standard protocol. COMPARISON: Chest xray from earlier today FINDINGS: The aorta is normal in course and caliber. The coronary arteries and aorta are atherosclerotic. The main pulmonary artery is dilated, measuring 3.8 cm in diameter. There are moderate right and small left pleural effusions. There are diffuse bilateral tiny centrilobular nodules. There are superimposed scattered groundglass opacities. There is no evidence of pneumothorax. The trachea is patent and midline. The heart is mildly enlarged. No pericardial effusion is present. A mildly enlarged right paratracheal lymph node is likely reactive. Other than calcified granulomas in the spleen, the visible portions of the upper abdominal organs are normal. Bone windows demonstrate no suspicious lytic or blastic lesions. The visible osseous structures are intact. IMPRESSION: 1. Bilateral tiny centrilobular nodules with superimposed scattered groundglass opacities, likely representing infectious/inflammatory bronchiolitis. Respiratory bronchiolitis interstitial lung disease or hypersensitivity pneumonitis are considered less likely, particularly in the acute setting. Follow-up to resolution is recommended. 2. Bilateral pleural effusions. 3. Enlarged main pulmonary artery compatible with pulmonary hypertension. Cardiomegaly. Electronically signed on Apr 20, 2018 2:28:20 PM THERMOSCREW OPERATOR by: Guille HALLMAN
[2018-04-20 16:13] VITALS: BP 130/84
== END 2018-04-20 15:35 | disposition short-term general hospital (02) ==
LOC: ED 11:57
DX: J18.9 Pneumonia, unspecified organism (principal); I50.9 Heart failure, unspecified; J90 Pleural effusion, not elsewhere classified; E55.9 Vitamin D deficiency, unspecified; R79.89 Other specified abnormal findings of blood chemistry
CPT/HCPCS: 36415; 71046; 71250; 80053; 83880; 84484; 85025; 87040; 93005; 94640; 96365; 96375; 96376; 99285; J0360; J1956; J2930; J3370; J7060; S1016

== ENCOUNTER 2018-05-19 07:41 | Day surgery (SDC) | payer OTHER ==
[2018-05-19] MEDS ORDERED: LIDOCAINE HCL 2% PF 100MG/5ML VIAL IJ ONE (08:48)
[2018-05-19] MEDS ORDERED: LACTATED RINGERS 1,000 ML IV.SOLN IV ONE (08:48)
[2018-05-19] MEDS ORDERED: PROPOFOL 200 MG/20 ML VIAL IV ONE (08:48)
--- NOTE | 2018-05-22 10:13 | GI Report ---
DATE OF PROCEDURE: 05/19/2018 PROCEDURE PERFORMED: Endoscopy with biopsies. SURGEON: Tiffani Webb M.D., F.A.C.P. INDICATION FOR PROCEDURE: The patient is a 62-year-old man who has had epigastric discomfort, satiety. He is diabetic. Hemoglobin A1C was elevated at 8.8 which gives an average blood glucose of 206, which is quite elevated. The patient apparently had pneumonia and was in the hospital recently and was put on prednisone which he is still on. He also has gout. His diabetic medication is Glipizide. He is also on heart medications. He is 510, weighs 213 lbs and carries that weight centrally. PROCEDURE MEDICATION: Propofol, as per Anesthesia. DESCRIPTION OF PROCEDURE: The Olympus video endoscope was passed through the esophagus under direct visualization. He does have grade 2 esophagitis at the GE junction. His stomach was entered. He does have evidence of gastroparesis and gastritis. Biopsies were taken in the antrum of the stomach. The duodenal bulb, first and second part of the duodenum was entered and were all normal. The patient tolerated the procedure well. FINDINGS: 1. Antral gastritis. 2. Gastroparesis. 3. Reflux esophagitis. RECOMMENDATIONS: 1. He really needs to be on a more rigid diabetic diet, smaller meals, cutting back on the carbohydrates. Weight loss would be beneficial. Three small meals, 3 small in between meal snacks with head of bed elevation and would put him on omeprazole 20 mg daily, and hopefully he can be off the prednisone soon. 2. Follow up biopsy results. TIFFANI WEBB M.D., F.A.CMyaP. Marquita Job#: [id number] Cc: Dr. Robertson ] LEXX
== END 2018-05-19 10:07 | disposition home or self-care (01) ==
LOC: OPSURG 07:41
PROVIDERS: ATTEND Internal Medicine Gastroenterology
DX: K21.0 Gastro-esophageal reflux disease with esophagitis (principal); K31.84 Gastroparesis; K29.30 Chronic superficial gastritis without bleeding; R13.10 Dysphagia, unspecified
CPT/HCPCS: 43239; 88305; 88313; J2001; J2704; J7120; S1016

== ENCOUNTER 2019-01-12 13:26 | Outpatient (CLI) | payer OTHER | END 2019-01-12 13:31 | LOC: LAB 13:26 | PROVIDERS: ATTEND Family Medicine | DX: E79.0 Hyperuricemia without signs of inflammatory arthritis and tophaceous disease (principal) | CPT/HCPCS: 36415; 84550 ==